=== PATIENT | male | born 1970 | race Caucasian/White ===

== ENCOUNTER → 2016-10-17 | Outpatient (CLI) | payer BC ==
[~2016-10-17] MED LIST: AGM875 PO; ALLDSR/24 PO; ALPR-411 PO; TEMA30CA4 PO
[2016-10-17 17:03] LABS: BASO % 0.6 %; BASO ABS # 0.03 K/uL (0-0.2); COMPLETE YES; EOS % 4.7 %; HEMATOCRIT 50.3 % (42-52); IG% 0.6 %; LYMPH % 28.2 %; LYMPH ABS # 1.31 K/uL (1.2-3.4); MEAN CELL VOLUME 90.3 fL (80-100); MEAN CORPUSCULAR HEMOGLOBIN 32.3 pg (25-34); MEAN CORPUSCULAR HGB CONC 35.8 g/dl (32-36); MEAN PLATELET VOLUME 10.2 fL (7.4-10.4); MONO % 11.4 %; NEUT % 54.5 %; PLATELET COUNT 194 K/uL (130-400); RED BLOOD COUNT 5.57 M/uL (4.7-6.1); WHITE BLOOD COUNT 4.64 K/uL (4.8-10.8)
[2016-10-17 17:38] LABS: ALT/SGPT 48 U/L (12-78); AST/SGOT 28 U/L (15-37); BLOOD UREA NITROGEN 23 mg/dl (7-18); BUN/CREATININE RATIO 15.1 (10-20); CALCIUM 8.8 mg/dl (8.5-10.1); CARBON DIOXIDE 29 mmol/L (21-32); CHLORIDE 101 mmol/L (98-107); GLUCOSE 84 mg/dl (70-99); MAGNESIUM 2.1 mg/dl (1.8-2.4); POTASSIUM 4.3 mmol/L (3.5-5.1); SODIUM 137 mmol/L (136-145)
[2016-10-17 17:42] LABS: ALB/GLOB RATIO 1.1 (0.9-2); ALKALINE PHOSPHATASE 47 U/L (45-117); CHOLESTEROL 207 mg/dl (0-200); CHOLESTEROL/HDL RATIO 6.9; HDL CHOLESTEROL 30 mg/dl; LDL CHOLESTEROL CALCULATED 142 mg/dl; TRIGLYCERIDES 173 mg/dl (0-150); VERY LOW DENSITY LIPOPROT CALC 35 mg/dl
== END | disposition home or self-care (01) ==
LOC: C.LABBC 15:30
PROVIDERS: ATTEND Nurse Practitioner Family
DX: I10 Essential (primary) hypertension (principal); E78.5 Hyperlipidemia, unspecified

== ENCOUNTER 2021-09-29 12:54 | Inpatient (IN) ==
[2021-09-29 13:37] LABS: Basophils # (auto) 0.02 K/uL (0-0.2); Basophils % (auto) 0.3 %; Eosinophils # (auto) 0.19 K/uL (0-0.5); Eosinophils % (auto) 2.7 %; Hematocrit (blood only) 48.7 % (42-52); Hemoglobin 17.5 g/dL (14.0-18.0); Immature Granulocytes # (auto) 0.03 K/uL (0.00-0.02); Immature Granulocytes % (auto) 0.4 %; Lymphocytes # (auto) 0.96 K/uL (1.2-3.4); Lymphocytes % (auto) 13.5 %; Mean Corpuscular Hgb Conc 35.9 g/dL (32-36); Mean Corpuscular Volume 91.9 fL (80-100); Mean Platelet Volume 10.2 fL (7.4-10.4); Monocytes # (auto) 0.65 K/uL (0.11-0.59); Monocytes % (auto) 9.2 %; Neutrophils # (auto) 5.24 K/uL (1.4-6.5); Neutrophils % (auto) 73.9 %; Platelet Count 226 K/uL (130-400); RDW Coefficient of Variation 13.7 % (11.5-14.5); RDW Standard Deviation 45.8 fL (36.4-46.3); White Blood Count 7.09 K/uL (4.8-10.8)
[2021-09-29 13:59] LABS: Partial Thromboplastin Time 26.4 Seconds (21.0-31.0); Prothrombin Time 10.4 Seconds (9.0-12.0)
[2021-09-29 14:00] LABS: Troponin I 2.62 ng/ml (0-0.04)
[2021-09-29] MEDS ORDERED: LORazepam 2 MG/1 ML VIAL IV STA (14:01)
[2021-09-29] MEDS ORDERED: LABETALOL HCL IV 5 MG/ML 20ML IV STA (14:03)
[2021-09-29 14:08] LABS: Albumin Globulin Ratio 1.2 (0.9-2); Albumin Level 3.5 gm/dl (3.4-5.0); BUN Creatinine Ratio 9.5 (10-20); Bilirubin,Total 0.6 mg/dl (0.2-1.0); Calcium 9.1 mg/dl (8.5-10.1); Creatinine Clr Calc Pharmacy 61.1 ml/min; Est GFR (African American) 39.6 ml/min; Est GFR (Non-African American) 34.2 ml/min; Globulin 2.9 gm/dl (2.5-4.0); Total Protein 6.4 gm/dl (6.0-8.3)
--- NOTE | 2021-09-29 14:19 | Emergency Department Note ---
Impression & Plan Elevated troponin ADMIT ED Provider Note HPI: The patient is a 50-year-old gentleman with history of CKD, hypertension, presents the emergency department with a chief complaint of chest pain that has been intermittent for the past 2 weeks. Patient tells me that over the past several weeks he has had issues with increasing stress, states he has had issues with anxiety as well, he has been eating a very poor diet over the past several months.Patient states that this is a combination of multiple stressors in his life in addition to his stressful work schedule. Patient states that since about 10 AM his chest pain seems to acutely worsened. Patient rates it at an 8 out of 10 on arrival. On arrival here to the ED he is hypertensive in the 190 systolic, on my initial assessment his heart rate is within normal limits, he is saturating well on room air. Patient complains of some ongoing chest discomfort. 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 His EKG shows no evidence of ST elevation however his troponin did result elevated at 2.6, case was discussed with on-call interventional Cardiology, Dr. Ashley, who is in agreement for consultation and will take the patient to the Planning Lead urgently if CT angiography of the chest is negative. Repeat EKG was performed and does not show any evidence of ST elevation. CT angiography of the chest was Performed and does not show any evidence of aortic dissection. Patient was given labetalol as well as Ativan by request here in the ED for his hypertension and his anxiety. Patient was taken urgently to the cardiac catheterization lab for further assessment. Aspirin was ordered but not given prior to the patient's transfer to the cardiac catheterization lab, patient was transferred in stable condition for further care. * CRITICAL CARE TIME: 35 minutes - Management of hypertensive emergency requiring IV medications for blood pressure control, management of elevated troponin in the setting of active chest pain requiring subspecialty consultation with interventional cardiology for transfer to the catheterization lab, Time spent at the bedside, discussion with other physicians/discussion with patient Diagnosis: 1. Chest pain with elevated troponin 2. Hypertensive emergency 3. CKD Disposition: Admission Roland Jimenez DO Emergency Medicine Past Med/Surg History Medical History Anxiety and depression Arthritis CKD (chronic kidney disease) Hyperlipidemia Hypertension Post traumatic stress disorder Quadriceps tendon rupture Surgical History S/P hernia surgery Family History Father Myocardial infarction COPD (chronic obstructive pulmonary disease) Hypertension Family history of diabetes mellitus Grandfather Lung cancer Mother COPD (chronic obstructive pulmonary disease) Hypertension Grandfather (Paternal) Myocardial infarction Family history of diabetes mellitus Other No family history of adverse response to anesthesia Denies family history of Ovarian cancer Prostate cancer Breast cancer Colorectal cancer Social History Smoking Status: Never smoker Second Hand Exposure: Yes ( A CHILD); Hx Alcohol Use: Yes Alcohol type: wine Hx Substance Use: Yes Substance Use Type Other:: MEDICAL MARIJUANA Preferred Language: Liberian Communication Ability: Effective Visual Impairment: No Limitations Hearing Ability: Normal Manager Epic Required: No Beliefs That Will Affect Care: None marital status: Current Living Situation: Spouse current occupational status: employed 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 Safe at Home: Yes Childhood Exposure to Second-Hand Smoke: Yes Dental Care, Regularly: Yes Physical Activity Frequency: 3-4 Times per Week Seatbelt Use: never Sunscreen Use: Yes Assistive Devices: Cane Allergies Allergies Allergy/AdvReac Type Severity Reaction Status Date / Time No Known Allergies Allergy Verified 06/16/21 14:04 Home Meds Home Medications Medication Instructions Recorded Confirmed multivitamin 1 tab PO BID tab 10/21/20 09/29/21 tramadol 100 mg tablet 100 mg PO DAILY PRN 10/21/20 09/29/21 ibuprofen 600 mg tablet 600 mg PO Q6H PRN 12/19/20 09/29/21 amino acids (Amino Acid) 1 cap PO DAILY 06/16/21 09/29/21 ascorbic acid (vitamin C) 1,000 mg 1 g PO BID tab 06/16/21 09/29/21 tablet (Vitamin C) buspirone 15 mg tablet 15 mg PO BID tab 06/16/21 09/29/21 cholecalciferol (vitamin D3) 50 10,000 unit PO DAILY tab 06/16/21 09/29/21 mcg (2,000 unit) tablet (Vitamin D3) lisinopril 20 mg tablet 20 mg PO BID tab 06/16/21 09/29/21 omega-3 fatty acids 1,000 mg 1,000 mg PO DAILY 06/16/21 09/29/21 capsule (Fish Oil Concentrate) zinc 100 mg tablet 200 mg PO DAILY tab 06/16/21 09/29/21 Previous Rx's Medication Instructions Recorded fluoxetine 20 mg capsule 20 mg PO DAILY #90 cap 08/11/20 aspirin 81 mg tablet,delayed 81 mg PO BID #60 tab 09/09/20 release carvedilol 25 mg tablet 25 mg PO BID #180 tab 10/21/20 hydrochlorothiazide 25 mg tablet 25 mg PO DAILY #90 tab 10/21/20 quetiapine 200 mg tablet 200 mg PO HS #90 tab 08/07/21 clonazepam 1 mg tablet 1 mg PO TID PRN #60 tab 08/08/21 Results & Data (ED) Vital Signs Vital Signs - 24 hr 09/29/21 13:02 09/29/21 13:45 09/29/21 13:47 Temperature 36.4 C L Temperature Source Temporal Artery Scan Pulse Rate 87 85 Pulse Rate [Apical] 85 Pulse Rhythm Regular Pulse Rhythm [Apical] Regular Pulse Strength [Apical] Normal Respiratory Rate 22 22 Respiratory Effort / Characteristics Non-Labored Non-Labored Spontaneous Non-Labored Spontaneous Short of Breath SOB on Exertion Respiratory Depth Normal Normal Normal Respiratory Pattern Regular Blood Pressure 204/124 H Blood Pressure [Right Arm] 197/134 H Blood Pressure Mean 150 Blood Pressure Mean [Right Arm] 155 Blood Pressure Position [Right Arm] Sitting Pulse Oximetry 96 93 Oxygen Delivery Method Room Air Room Air Room Air Sepsis Recent Fever Within 48 Hours No Sepsis New/Unexplained Change in Mental Status No Sepsis Action Taken by Nursing No Action Required 09/29/21 14:00 09/29/21 14:23 Temperature Temperature Source Pulse Rate Pulse Rate [Apical] 80 Pulse Rhythm Pulse Rhythm [Apical] Regular Pulse Strength [Apical] Normal Respiratory Rate 22 Respiratory Effort / Characteristics Non-Labored Respiratory Depth Normal Respiratory Pattern Regular Blood Pressure Blood Pressure [Right Arm] 180/116 H Blood Pressure Mean Blood Pressure Mean [Right Arm] 137 Blood Pressure Position [Right Arm] Sitting Pulse Oximetry 95 94 Oxygen Delivery Method Room Air Room Air Sepsis Recent Fever Within 48 Hours Sepsis New/Unexplained Change in Mental Status Sepsis Action Taken by Nursing Laboratory Data Result diagrams: 09/29/21 13:25 09/29/21 13:25 Lab Results 09/29/21 09/29/21 09/29/21 Range/Units 13:25 13:25 13:25 WBC 7.09 (4.8-10.8) K/uL RBC 5.30 (4.7-6.1) M/uL Hgb 17.5 (14.0-18.0) g/dL Hct 48.7 (42-52) % MCV 91.9 (80-100) fL MCH 33.0 (25-34) pg MCHC 35.9 (32-36) g/dL RDW Std Deviation 45.8 (36.4-46.3) fL RDW Coeff of Melonie 13.7 (11.5-14.5) % Plt Count 226 (130-400) K/uL MPV 10.2 (7.4-10.4) fL Immature Gran % (Auto) 0.4 % Neut % (Auto) 73.9 % Lymph % (Auto) 13.5 % [place] % (Auto) 9.2 % Eos % (Auto) 2.7 % Baso % (Auto) 0.3 % Neut # (Auto) 5.24 (1.4-6.5) K/uL Lymph # (Auto) 0.96 L (1.2-3.4) K/uL [place] # (Auto) 0.65 H (0.11-0.59) K/uL Eos # (Auto) 0.19 (0-0.5) K/uL Baso # (Auto) 0.02 (0-0.2) K/uL Immature Gran # (Auto) 0.03 H (0.00-0.02) K/uL PT 10.4 (9.0-12.0) Seconds INR 1.0 (0.9-1.1) APTT 26.4 (21.0-31.0) Seconds PTT Ratio 1.0 Sodium 132 L (136-145) mmol/L Potassium 4.0 (3.5-5.1) mmol/L Chloride 96 L (98-107) mmol/L Carbon Dioxide 29 (21-32) mmol/L Anion Gap 7 (3-11) BUN 21 (6-23) mg/dl Creatinine 2.20 H (0.6-1.4) mg/dl Est Cr Clr Drug Dosing 61.1 ml/min Est GFR ( Amer) 39.6 ml/min Est GFR (Non-Af Amer) 34.2 ml/min BUN/Creatinine Ratio 9.5 L (10-20) Glucose 100 H (70-99(Fasting)) mg/dl Calcium 9.1 (8.5-10.1) mg/dl Total Bilirubin 0.6 (0.2-1.0) mg/dl AST 95 H (13-39) U/L ALT 70 H (7-52) U/L Alkaline Phosphatase 38 (34-104) U/L Troponin I 2.62 H* (0-0.04) ng/ml Total Protein 6.4 (6.0-8.3) gm/dl Albumin 3.5 (3.4-5.0) gm/dl Globulin 2.9 (2.5-4.0) gm/dl Albumin/Globulin Ratio 1.2 (0.9-2) Administered Medications Discontinued Medications Ioversol (Optiray 320 125ml) 116 ml IV ONCE ONE Stop: 09/29/21 15:00 Last Admin: 09/29/21 15:05 Dose: 116 ml Documented by: [id number] Labetalol HCl (Labetalol Hcl Iv 5 Mg/Ml 20ml) 10 mg IV NOW STA Stop: 09/29/21 14:04 Last Admin: 09/29/21 14:13 Dose: 10 mg Documented by: [id number] Cosigned by: [id number] Lorazepam (Lorazepam 2 Mg/1 Ml Vial) 1 mg IV NOW STA Stop: 09/29/21 14:02 Last Admin: 09/29/21 14:15 Dose: 1 mg Documented by: [id number] Imaging Data Radiologist's Impression: Chest CTA 09/29/21 14:02 CHEST CTA for AORTIC DISSECTION CT DOSE: 1813.93 mGycm HISTORY: Atypical chest pain. Assess for dissection. TECHNIQUE: Multiaxial CT images of the chest were performed both before and after the intravenous administration of contrast to evaluate the aorta. Maximal intensity projection images were also obtained. A dose lowering technique was utilized adhering to the principles of ALARA. COMPARISON STUDY: None. FINDINGS: Noncontrast imaging through the chest shows no evidence for an intramural hematoma within the thoracic aorta. Normal caliber thoracic aorta with no evidence for dissection. The heart is mildly enlarged. No pleural or pericardial effusions. Normal thyroid gland. No mediastinal lymphadenopathy or hematoma. No hilar lymphadenopathy. Limited views the upper abdomen demonstrate a normal liver and spleen. Normal caliber esophagus. No acute fractures within the visualized osseous structures. Severe osteoarthritis within the right glenohumeral joint. No pneumothorax. The central airways are patent. Mild dependent changes seen within the lungs posteriorly. No focal lung consolidations to suggest pneumonia. No evidence for pulmonary edema. IMPRESSION: 1. No evidence for an aortic dissection. 2. Mild cardiomegaly. 3. Severe osteoarthritis within the right glenohumeral joint ACT 112: Negative or not required by law. Electronically signed by: Fabian Ovalle M.D. 09/29/2021 3:21 PM Discharge Plan Visit Data Chief Complaint: Cardiac Assessment Stated Complaint: SOB, CHEST PAIN, LEFT ARM SIDE NUMB ED Provider: Roland Jimenez Discharge Problem: Elevated troponin Forms Stand Alone Forms: My [employer] Prescriptions Prescriptions: No Action quetiapine 200 mg tablet 200 mg PO HS Qty: 90 RF: 0 clonazepam 1 mg tablet 1 mg PO TID PRN (Reason: anxiety) Qty: 60 RF: 0 fluoxetine 20 mg capsule 20 mg PO DAILY Qty: 90 RF: 1 buspirone 15 mg tablet 15 mg PO BID RF: 0 lisinopril 20 mg tablet 20 mg PO BID RF: 0 omega-3 fatty acids [Fish Oil Concentrate] 1,000 mg capsule 1,000 mg PO DAILY RF: 0 tramadol 100 mg tablet 100 mg PO DAILY PRN (Reason: Pain) RF: 0 carvedilol 25 mg tablet 25 mg PO BID Qty: 180 RF: 3 hydrochlorothiazide 25 mg tablet 25 mg PO DAILY Qty: 90 RF: 3 ibuprofen 600 mg tablet 600 mg PO Q6H PRN (Reason: Pain) RF: 0 aspirin 81 mg tablet,delayed release (DR/EC) 81 mg PO BID Qty: 60 RF: 0 multivitamin Tablet 1 tab PO BID RF: 0 Amino Acid Capsule 1 cap PO DAILY RF: 0 cholecalciferol (vitamin D3) [Vitamin D3] 50 mcg (2,000 unit) tablet 10,000 unit PO DAILY RF: 0 ascorbic acid (vitamin C) [Vitamin C] 1,000 mg tablet 1 g PO BID RF: 0 zinc 100 mg tablet 200 mg PO DAILY RF: 0 Referrals Referrals: Chris Mckeon III, CRNP [Primary Care Provider] -
--- NOTE | 2021-09-29 14:39 | Electrocardiogram Report ---
Test Reason : Blood Pressure : / mmHG Vent. Rate : 085 BPM Atrial Rate : 085 BPM P-R Int : 186 ms QRS Dur : 124 ms QT Int : 386 ms P-R-T Axes : 036 045 035 degrees QTc Int : 459 ms Normal sinus rhythm Possible Left atrial enlargement Non-specific intra-ventricular conduction delay Nonspecific ST abnormality Abnormal ECG When compared with ECG of 09-SEP-2020 11:38, ST now depressed in Lateral leads Confirmed by Niraj Slaughter ([id number]) on 09/29/2021 2:38:59 PM Referred By: Confirmed By:Esequiel Slaughter
[2021-09-29] MEDS ORDERED: OPTIRAY 320 125ml IV ONE (14:59)
--- NOTE | 2021-09-29 15:22 | CT Scan Report ---
CHEST CTA for AORTIC DISSECTION CT DOSE: 1813.93 mGycm HISTORY: Atypical chest pain. Assess for dissection. TECHNIQUE: Multiaxial CT images of the chest were performed both before and after the intravenous adm inistration of contrast to evaluate the aorta. Maximal intensity projection images were also obtained . A dose lowering technique was utilized adhering to the principles of ALARA. COMPARISON STUDY: None. FINDINGS: Noncontrast imaging through the chest shows no evidence for an intramural hematoma within t he thoracic aorta. Normal caliber thoracic aorta with no evidence for dissection. The heart is mildly enlarged. No pleural or pericardial effusions. Normal thyroid gland. No mediastinal lymphadenopathy or hematoma. No hilar lymphadenopathy. Limited views the upper abdomen demonstrate a normal liver and spleen. Normal caliber esophagus. No acute fractures within the visualized osseous structures. Sever e osteoarthritis within the right glenohumeral joint. No pneumothorax. The central airways are patent . Mild dependent changes seen within the lungs posteriorly. No focal lung consolidations to suggest p neumonia. No evidence for pulmonary edema. IMPRESSION: 1. No evidence for an aortic dissection. 2. Mild cardiomegaly. 3. Severe osteoarthritis within the right glenohumeral joint ACT 112: Negative or not required by law. Electronically signed by: Fabian Ovalle M.D. 09/29/2021 3:21 PM
[2021-09-29] MEDS ORDERED: ASPIRIN CHEW 324 MG PO STA (15:25)
[2021-09-29] MEDS ORDERED: MIDAZOLAM HCL 1 MG/ML 2ML VIAL ONE ×4 (15:32→16:40)
[2021-09-29] MEDS ORDERED: fentaNYL citrate 100 MCG/2 ML VIAL ONE ×3 (15:32→16:40)
[2021-09-29] MEDS ORDERED: HEPARIN (PORCINE) 1000 UNIT/ML 10 ML (CATH LAB USE ONLY) ONE ×2 (15:32→16:27)
[2021-09-29] MEDS ORDERED: niCARdipine HCL INJ 2.5 MG/ML 10 ML AMP ONE (15:32)
[2021-09-29] MEDS ORDERED: NITROGLYCERIN/D5W 100MCG/ML 20ML SYR ONE (15:33)
[2021-09-29] MEDS ORDERED: TICAGRELOR 90 MG TAB PO ONE (17:00)
--- NOTE | 2021-09-29 17:22 | Post Anesthesia Assessment ---
Date of Service September 29, 2021 Post Sedation Assessment Vital Signs Temp Pulse Pulse Resp BP BP Pulse Ox 09/29/21 14:45 174/110 H 09/29/21 14:23 94 09/29/21 14:00 80 22 180/116 H 95 09/29/21 13:45 85 85 22 197/134 H 93 09/29/21 13:02 97.5 F L 87 22 204/124 H 96 Recovery Score Activity: Moves 4 extremities Respiration: Deep Breath/Cough Circulation: +/-20% PreAnes Value Consciousness: Fully Awake Oxygen Saturation: O2 needed for >90% Discharge Sedation Level of Care: Fast Track Phase II Post Sedation Plan On clinical assessment, the patient appears to have tolerated the sedation without complications. Patient is recovering as anticipated. Patient will continue to be monitored by nursing and may be discharged when sedation discharge criteria are met per below protocol. Upon Completions of procedure up to 15 minutes continue every 5 minute vital signs and the P.A.R. score; then discharge to a Phase I or Fast Track to Phase II per the following guidelines: * Discharge Patient to appropriate Phase II area if PAR is 8 or greater or return to pre- procedure baseline. The post - procedure orders will be as directed. * If PAR score is less than 8 or not return to pre-procedure baseline then patient will follow Phase I monitoring till PAR is reached for Phase II. The Phase I may be done in procedure room or may call to secure a Phase I area. * If naloxone or flumazenil are used for reversal, hold in Phase I for continued monitoring from when last reversal dose was given for a minimum of 60 minutes or longer pending the nurse and/or physician discretion of patient condition before discharge to Phase II. Please call the Sedation Physician to re-evaluate and complete post-note for discharge to Phase II area. Do NOT discharge from procedure sedation or Phase 1 until post- sedation evaluation note is complete by procedure /sedation MD Sedation Discharge Instructions to be given to the patient at discharge to home.
--- NOTE | 2021-09-29 17:22 | Pre Anesthesia Assessment ---
Date of Service September 29, 2021 Pre Sedation Assessment Vital Signs Temp Pulse Pulse Resp BP BP Pulse Ox 09/29/21 14:45 174/110 H 09/29/21 14:23 94 09/29/21 14:00 80 22 180/116 H 95 09/29/21 13:45 85 85 22 197/134 H 93 09/29/21 13:02 97.5 F L 87 22 204/124 H 96 Cardiovascular RRR, no murmur, no edema Respiratory normal respiratory effort, lungs clear to auscultation Pre-Sedation Airway Assessment Smoking Status: Never smoker Hx Sleep Apnea: No Hx Difficult Intubation: No Short, Thick Neck: Yes Thyromental Distance: > or= 3.5 Finger Breadths Oral Cavity: + WNL Mallampati Class: III ASA: ASA3 NPO Status Date of Last Intake of Fluids: 09/28/21 Date of Last Intake of Solid Food: 09/28/21 Procedure Planning Contraindications for Sedation: none Current Medications Reviewed: Yes Notes The planned sedation has been discussed with the patient. Informed Consent was obtained. I have identified the patient, determined the appropriateness of sedation and have assessed the patient immediately prior to the procedure. All medicine(s) and interventions are by my order.
--- NOTE | 2021-09-29 17:28 | Electrocardiogram Report ---
Test Reason : Blood Pressure : / mmHG Vent. Rate : 081 BPM Atrial Rate : 081 BPM P-R Int : 186 ms QRS Dur : 122 ms QT Int : 384 ms P-R-T Axes : 042 036 003 degrees QTc Int : 446 ms Normal sinus rhythm Possible Left atrial enlargement possible Inferior infarct , age undetermined Abnormal ECG When compared with ECG of 29-SEP-2021 13:22, No significant change was found Confirmed by Niraj Slaughter ([id number]) on 09/29/2021 5:27:54 PM Referred By: REFERRED SELF Confirmed By:Esequiel Slaughter
[2021-09-29] MEDS ORDERED: NITROGLYCERIN SL 0.4 MG/TAB TAB SL PRN (17:43)
[2021-09-29] MEDS ORDERED: ONDANSETRON INJ 2 MG/ML 2 ML VIAL IV PRN (17:43)
[2021-09-29] MEDS ORDERED: SODIUM CHLORIDE 0.9% 1000ML 1,000 ML IV SCH (18:00)
--- NOTE | 2021-09-29 18:06 | Post Operative Brief Note ---
Cardiology Brief Post Op Date of Surgery September 29, 2021 Pre & Post Diagnosis NSTEMI Procedure Cardiac cath, PCI Environmental Sampler Niraj Ashley MD Clinical Academic Allergist Deibler Estimated Blood Loss 15 Findings See Below 100% acute mid circumflex occlusion 40-50% mid RCA 95+% distal RCA Successful PCI of mid circumflex with single WILFRED (3.0 x 22 Lueders; post-dilated with 3.5 NC). Attempted PCI of distal RCA. Appeared to be chronic lesion and procedure discontinued. Plan: trend trop, echo blood pressure control DAPT IV hydration for CKD/JESSE possible staged PCI of RCA on saturday Drains Other Anesthesia Type RN Sedation Complications none Disposition Accompanied Patient To Recovery: No Disposition: PCU Overlapping Procedure I was present for: the critical portions of procedure. I was immediately available: during the entire case. Back up surgeon: was not required during procedure.
--- NOTE | 2021-09-29 18:17 | History & Physical Report ---
Date of Service September 29, 2021 Assessment & Plan (1) NSTEMI (non-ST elevated myocardial infarction): Plan: Presented with intermittent chest pains progressively worsening over the last 2 weeks, with troponin of 2.[address] depressions in lateral leads With risk factors of HTN, CKD Now s/p cardiac catheterization with 1 WILFRED to the circumflex it was acutely occluded. RCA has a 95% distal more chronic occlusion that was unable to be stented -Admit to PCU -Continue DAPT with aspirin and Brilinta -Start atorvastatin 80 mg daily -Continue home carvedilol 25 mg p.o. twice daily -Holding home losartan and HCTZ in case of acute kidney injury from dye load -Start hydralazine 25 mg p.o. 3 times daily for BP control and increase as needed -Start isosorbide 30 mg p.o. once daily, first dose now and titrate up as needed -Trend troponin until peaks, serial ECG -Check echocardiogram -Check lipid panel in the morning -Appreciate cardiology management -Check hemoglobin A1c in the morning -Follow radial artery catheterization precautions, recommended he abstain from a ll of his usual heavy weightlifting activity at this time until cleared by cardiology -Discontinue NSAIDs permanently (2) CAD (coronary artery disease), [place] coronary artery: Plan: As above, severe Will need cardiac rehab (3) Transaminitis: Plan: AST and ALT elevated upon arrival No imaging of the liver He is at risk for fatty liver No abdominal pains Follow LFTs in the morning and if remain elevated, consider liver ultrasound (4) CKD (chronic kidney disease): Plan: CKD stage III, follows with nephrology as an outpatient, baseline creatinine 2.0 with history of nephrotic range proteinuria Creatinine slightly above baseline on arrival here 2.2 Received contrast dye load with CT a chest as well as cardiac catheterization Continue IV fluid hydration post catheterization with 750 mL of normal saline Follow BMP in the morning -Holding home losartan and HCTZ (5) Benign essential hypertension: Plan: With accelerated hypertension here with blood pressures in the 190s over 130s Holding home losartan HCTZ as above -Continue home carvedilol -Start hydralazine 25 mg p.o. 3 times daily and titrate up as needed -Start isosorbide 30 mg p.o. once daily and titrate up as needed -IV hydralazine 10 mg as needed for blood pressures greater than 180/100 -Anxiety also playing a role here-restart home anxiety medications to include BuSpar, clonazepam, Prozac, Seroquel (6) Proteinuria: Plan: As above (7) GORDY (generalized anxiety disorder): Plan: Continue home medications (8) Hyperlipidemia: Plan: Check lipid panel in the morning Previous LDL elevated 154 Start atorvastatin 80 mg daily (9) Major depressive disorder: Plan: Continue home medications Plan: DVT prophylaxis-SCDs Disposition-admit to PCU Full code History of Present Illness Chief Complaint: Chest pain Primary Care Provider: Chris Mckeon, III, [facility] This pt is a 50 yo male with a h/o HTN, CKD stage 3, nephrotic range proteinuria, obesity, depression w/ anxiety, who presents to the ER with chest pain that has been intermittent for the last 2 weeks, but got much worse this morning. He has trouble describing it but it seemed to be substernal and somewhat sharp and at times he thought it was indigestion. He did take Tums a few times over the last 2 weeks which would make it go away. He also had some occasional numbness in the left arm. The pain today also made him short of breath. He reports that he regularly exercises and in fact lifted 500 pounds yesterday and moved many 100s of pounds of machinery around at work. He does admit that he has gained extra weight over the last year or so and wonders if that contributed to his chest pains. In the ER, he was found to have a troponin of 2.6, and some ST depressions in the lateral leads on ECG. His AST and ALT were also elevated, and he had a mild hyponatremia with a sodium of 132. His creatinine was slightly above his baseline at 2.2. He was significantly hypertensive with blood pressures close to 200 systolic and 130s diastolic. Because of the elevated troponin and chest pains, he was sent for CT angiogram of the chest which was negative for dissection or PE. He was then taken to the cardiac [facility] where he was found to have an acutely occluded circumflex which was stented, and a 95% distal RCA lesion which had an attempted PCI but the lesion appeared to be chronic and the procedure was discontinued due to effort to avoid further dye load. He does have CKD and had dye load with his CTA as well as the cardiac catheterization. Planned for staged PCI of the RCA on Saturday. He was loaded with Brilinta and blood pressures remained elevated upon arrival to the PCU. When I saw him, he continued to be quite anxious and requested his clonazepam, but said he was not having any further chest pains. Denies shortness of breath. Denied nausea. He was given IV hydralazine as well as p.o. hydralazine. I discussed his case with the service tester at the time of admission. Allergies Allergy/AdvReac Type Severity Reaction Status Date / Time amlodipine AdvReac Intermediate Leg Verified 09/29/21 18:47 swelling Home Medications Medication Instructions Recorded Confirmed Type fluoxetine 20 mg capsule 20 mg PO DAILY #90 cap 08/11/20 09/29/21 Rx aspirin 81 mg tablet,delayed 81 mg PO BID #60 tab 09/09/20 09/29/21 Rx release carvedilol 25 mg tablet 25 mg PO BID #180 tab 10/21/20 09/29/21 Rx hydrochlorothiazide 25 mg tablet 25 mg PO DAILY #90 tab 10/21/20 09/29/21 Rx multivitamin 1 tab PO BID tab 10/21/20 09/29/21 History tramadol 100 mg tablet 100 mg PO DAILY PRN 10/21/20 09/29/21 History ibuprofen 600 mg tablet 600 mg PO Q6H PRN 12/19/20 09/29/21 History amino acids (Amino Acid) 1 cap PO DAILY 06/16/21 09/29/21 History ascorbic acid (vitamin C) 1,000 mg 1 g PO BID tab 06/16/21 09/29/21 History tablet (Vitamin C) buspirone 15 mg tablet 15 mg PO BID tab 06/16/21 09/29/21 History cholecalciferol (vitamin D3) 50 10,000 unit PO DAILY tab 06/16/21 09/29/21 History mcg (2,000 unit) tablet (Vitamin D3) lisinopril 20 mg tablet 20 mg PO BID tab 06/16/21 09/29/21 History omega-3 fatty acids 1,000 mg 1,000 mg PO DAILY 06/16/21 09/29/21 History capsule (Fish Oil Concentrate) zinc 100 mg tablet 200 mg PO DAILY tab 06/16/21 09/29/21 History quetiapine 200 mg tablet 200 mg PO HS #90 tab 08/07/21 09/29/21 Rx clonazepam 1 mg tablet 1 mg PO TID PRN #60 tab 08/08/21 09/29/21 Rx Past Med/Surg History Medical History (Updated 09/29/21 @ 21:57 by Rdaha Lin MD) Anxiety and depression Arthritis CAD (coronary artery disease), [place] coronary artery CKD (chronic kidney disease) Hyperlipidemia Hypertension NSTEMI (non-ST elevated myocardial infarction) Post traumatic stress disorder Quadriceps tendon rupture RT Surgical History (Updated 09/29/21 @ 21:51 by Radha Lin MD) H/O knee surgery Bilateral quadriceps tendon repair S/P hernia surgery UMBILICAL Family History Father Myocardial infarction COPD (chronic obstructive pulmonary disease) Hypertension Family history of diabetes mellitus Grandfather Lung cancer Mother COPD (chronic obstructive pulmonary disease) Hypertension Grandfather (Paternal) Myocardial infarction Family history of diabetes mellitus Other No family history of adverse response to anesthesia Denies family history of Ovarian cancer Prostate cancer Breast cancer Colorectal cancer Social History Smoking Status: Never smoker Second Hand Exposure: Yes ( A CHILD); Hx Alcohol Use: No Hx Substance Use: No Preferred Language: Vietnamese Communication Ability: Effective Visual Impairment: No Limitations Hearing Ability: Normal Silk Screen Operator Required: No Beliefs That Will Affect Care: None marital status: Current Living Situation: Spouse current occupational status: employed 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 Feels Safe at Home: Yes and No Is there a partner from a previous relationship who is making you feel unsafe now?: No Any Concerns about Your Family Situation: No Would You Like to Speak to Someone About Your Situation: No Childhood Exposure to Second-Hand Smoke: Yes Dental Care, Regularly: Yes Physical Activity Frequency: 3-4 Times per Week Seatbelt Use: never Sunscreen Use: Yes Assistive Devices: None Review of Systems Review of Systems: All systems reviewed & are unremarkable except as noted in HPI & below Physical Exam Constitutional: WD/WN, vitals as above + obese Eyes: + anicteric sclerae ENMT: external ear and nose normal, oropharynx normal Neck: trachea midline, no thyromegaly Respiratory: normal respiratory effort, lungs clear to auscultation Cardiovascular: RRR, no murmur, no edema Chest (Breasts): Chest: normal inspection of chest Gastrointestinal (Abdomen): normal bowel sounds, soft, nontender, no hepa tosplenomegaly Musculoskeletal: Extremities: extremities normal to inspection; no cyanosis and no clubbing Skin: no rashes, warm and dry Neurologic: moves all extremities and awake; no focal motor deficits Psychiatric: A+Ox3, euthymic affect Lymphatic: no lymphedema Results & Data Results & Data ([facility]) Vital Signs (Past 12 Hours) Vital Signs Temp Pulse Pulse Resp BP BP Pulse Ox 09/29/21 17:23 36.7 C 83 20 174/126 H 93 09/29/21 14:45 174/110 H 09/29/21 14:23 94 09/29/21 14:00 80 22 180/116 H 95 09/29/21 13:45 85 85 22 197/134 H 93 09/29/21 13:02 36.4 C L 87 22 204/124 H 96 Laboratory Results 09/29/21 09/29/21 09/29/21 Range/Units 16:53 16:24 15:30 WBC (4.8-10.8) K/uL RBC (4.7-6.1) M/uL Hgb (14.0-18.0) g/dL Hct (42-52) % MCV (80-100) fL MCH (25-34) pg MCHC (32-36) g/dL RDW Std Deviation (36.4-46.3) fL RDW Coeff of Melonie (11.5-14.5) % Plt Count (130-400) K/uL MPV (7.4-10.4) fL Immature Gran % (Auto) % Neut % (Auto) % Lymph % (Auto) % [place] % (Auto) % Eos % (Auto) % Baso % (Auto) % Neut # (Auto) (1.4-6.5) K/uL Lymph # (Auto) (1.2-3.4) K/uL [place] # (Auto) (0.11-0.59) K/uL Eos # (Auto) (0-0.5) K/uL Baso # (Auto) (0-0.2) K/uL Immature Gran # (Auto) (0.00-0.02) K/uL PT (9.0-12.0) Seconds INR (0.9-1.1) APTT (21.0-31.0) Seconds PTT Ratio Activ Coag Time Kaolin 225 H 249 H (94-140) SECONDS Sodium (136-145) mmol/L Potassium (3.5-5.1) mmol/L Chloride (98-107) mmol/L Carbon Dioxide (21-32) mmol/L Anion Gap (3-11) BUN (6-23) mg/dl Creatinine (0.6-1.4) mg/dl Est Cr Clr Drug Dosing ml/min Est GFR ( Amer) ml/min Est GFR (Non-Af Amer) ml/min BUN/Creatinine Ratio (10-20) Glucose (70-99(Fasting)) mg/dl Calcium (8.5-10.1) mg/dl Total Bilirubin (0.2-1.0) mg/dl AST (13-39) U/L ALT (7-52) U/L Alkaline Phosphatase (34-104) U/L Troponin I (0-0.04) ng/ml Total Protein (6.0-8.3) gm/dl Albumin (3.4-5.0) gm/dl Globulin (2.5-4.0) gm/dl Albumin/Globulin Ratio (0.9-2) SARS-CoV-2, RNA, NAAT NEGATIVE (NEGATIVE) 09/29/21 09/29/21 09/29/21 Range/Units 13:25 13:25 13:25 WBC 7.09 (4.8-10.8) K/uL RBC 5.30 (4.7-6.1) M/uL Hgb 17.5 (14.0-18.0) g/dL Hct 48.7 (42-52) % MCV 91.9 (80-100) fL MCH 33.0 (25-34) pg MCHC 35.9 (32-36) g/dL RDW Std Deviation 45.8 (36.4-46.3) fL RDW Coeff of Melonie 13.7 (11.5-14.5) % Plt Count 226 (130-400) K/uL MPV 10.2 (7.4-10.4) fL Immature Gran % (Auto) 0.4 % Neut % (Auto) 73.9 % Lymph % (Auto) 13.5 % [place] % (Auto) 9.2 % Eos % (Auto) 2.7 % Baso % (Auto) 0.3 % Neut # (Auto) 5.24 (1.4-6.5) K/uL Lymph # (Auto) 0.96 L (1.2-3.4) K/uL [place] # (Auto) 0.65 H (0.11-0.59) K/uL Eos # (Auto) 0.19 (0-0.5) K/uL Baso # (Auto) 0.02 (0-0.2) K/uL Immature Gran # (Auto) 0.03 H (0.00-0.02) K/uL PT 10.4 (9.0-12.0) Seconds INR 1.0 (0.9-1.1) APTT 26.4 (21.0-31.0) Seconds PTT Ratio 1.0 Activ Coag Time Kaolin (94-140) SECONDS Sodium 132 L (136-145) mmol/L Potassium 4.0 (3.5-5.1) mmol/L Chloride 96 L (98-107) mmol/L Carbon Dioxide 29 (21-32) mmol/L Anion Gap 7 (3-11) BUN 21 (6-23) mg/dl Creatinine 2.20 H (0.6-1.4) mg/dl Est Cr Clr Drug Dosing 61.1 ml/min Est GFR ( Amer) 39.6 ml/min Est GFR (Non-Af Amer) 34.2 ml/min BUN/Creatinine Ratio 9.5 L (10-20) Glucose 100 H (70-99(Fasting)) mg/dl Calcium 9.1 (8.5-10.1) mg/dl Total Bilirubin 0.6 (0.2-1.0) mg/dl AST 95 H (13-39) U/L ALT 70 H (7-52) U/L Alkaline Phosphatase 38 (34-104) U/L Troponin I 2.62 H* (0-0.04) ng/ml Total Protein 6.4 (6.0-8.3) gm/dl Albumin 3.5 (3.4-5.0) gm/dl Globulin 2.9 (2.5-4.0) gm/dl Albumin/Globulin Ratio 1.2 (0.9-2) SARS-CoV-2, RNA, NAAT (NEGATIVE) Diagnostic Findings Chest CTA 09/29/21 14:02 CHEST CTA for AORTIC DISSECTION CT DOSE: 1813.93 mGycm HISTORY: Atypical chest pain. Assess for dissection. TECHNIQUE: Multiaxial CT images of the chest were performed both before and after the intravenous administration of contrast to evaluate the aorta. Maximal intensity projection images were also obtained. A dose lowering technique was utilized adhering to the principles of ALARA. COMPARISON STUDY: None. FINDINGS: Noncontrast imaging through the chest shows no evidence for an intramural hematoma within the thoracic aorta. Normal caliber thoracic aorta with no evidence for dissection. The heart is mildly enlarged. No pleural or pericardial effusions. Normal thyroid gland. No mediastinal lymphadenopathy or hematoma. No hilar lymphadenopathy. Limited views the upper abdomen demonstrate a normal liver and spleen. Normal caliber esophagus. No acute fractures within the visualized osseous structures. Severe osteoarthritis within the right glenohumeral joint. No pneumothorax. The central airways are patent. Mild dependent changes seen within the lungs posteriorly. No focal lung conso lidations to suggest pneumonia. No evidence for pulmonary edema. IMPRESSION: 1. No evidence for an aortic dissection. 2. Mild cardiomegaly. 3. Severe osteoarthritis within the right glenohumeral joint ACT 112: Negative or not required by law. Electronically signed by: Fabian Ovalle M.D. 09/29/2021 3:21 PM Code Status & VTE Plan Code Status Full code VTE Prophylaxis Plan VTE Prophylaxis will be ordered: Yes PG Care Time/CCT Total # of Minutes Spent Total Time Spent with Patient: Total time spent is greater than 50% in coordination of care (as documented) at patient's floor/unit and/or counseling patient: Coding Level of Care Code 53537 Initial Inpt Care Lvl 3 Diagnoses Proteinuria R80.9 GORDY (generalized anxiety disorder) F41.1 Hyperlipidemia E78.2 Hyperlipidemia type: mixed hyperlipidemia Benign essential hypertension I10 Major depressive disorder F33.0 Active/Remission status: currently active Major depression episode severity: mild Major depression recurrence: recurrent CKD (chronic kidney disease) N18.9 NSTEMI (non-ST elevated myocardial infarction) I21.4 CAD (coronary artery disease), [place] coronary artery I25.10 Transaminitis R74.01 (1) Major depressive disorder Active/Remission status: currently active Major depression episode severity: mild Major depression recurrence: recurrent Qualified Code(s): F33.0 - Major depressive disorder, recurrent, mild (2) Hyperlipidemia Hyperlipidemia type: mixed hyperlipidemia Qualified Code(s): E78.2 - Mixed hyperlipidemia
[2021-09-29] MEDS ORDERED: traMADol HCL 50 MG TABLET PO PRN (18:22)
[2021-09-29] MEDS: hydrALAZINE HCL 25 MG TAB PO SCH (18:47)
[2021-09-29] MEDS: clonazePAM 1 MG TAB PO PRN (18:47)
[2021-09-29] MEDS: ISOSORBIDE MONO EXTENDED REL 30 MG TABCR PO SCH (19:52)
[2021-09-29] MEDS: busPIRone 15 MG TAB PO SCH (19:53)
[2021-09-29] MEDS: QUEtiapine FUMARATE 200 MG TAB PO SCH (19:53)
[2021-09-29] MEDS: carvediloL 25 MG TAB PO SCH (19:53)
[2021-09-29] MEDS: hydrALAZINE HCL 20 MG/ML VIAL IV PRN ×2 (20:54→23:32)
[2021-09-29] MEDS ORDERED: LORazepam 1 MG TAB PO STA (21:37)
--- NOTE | 2021-09-29 22:19 | Cardiology Consultation ---
Date of Consultation September 29, 2021 Assessment & Plan (1) NSTEMI (non-ST elevated myocardial infarction): Presentation consistent with high risk NSTEMI. With ongoing chest pain recommend proceeding with urgent cardiac catheterization and possible primary PCI. Procedure complicated by patient's chronic kidney disease and contrast exposure from CTA. Discussed risks, benefits, alternatives of procedure with patient and they are willing to proceed. Further recommendations pending findings of coronary angiography. History of Present Illness Attending Physician: Radha Lin MD History of Present Illness 50-year-old man here with acute chest pain and elevated troponin concerning for acute coronary syndrome. Patient seen urgently in the ED in the setting of ongoing chest pain. No prior cardiac history. Past medical history includes stage III chronic kidney disease with baseline serum creatinine around 2.0, hypertension, dyslipidemia, generalized anxiety and obesity. 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 Reports that he woke up around 1030 this morning and soon after developed crushing, persistent chest pain right is worse than 8 out of 10. States has been having intermittent episodes of chest pain for the last 2 weeks, occurring at re st which he was attributing to stress. In the ED patient hypertensive to the 190s. ECG showed sinus rhythm with nonspecific IVCD and subtle lateral ST depressions and possible inferior infarct. Chest CTA negative for dissection. Initial troponin positive at 2.6. Social history: Non-smoker. Does not drink alcohol. . 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 Allergies Allergy/AdvReac Type Severity Reaction Status Date / Time amlodipine AdvReac Intermediate Leg Verified 09/29/21 18:47 swelling Home Medications Medication Instructions Recorded Confirmed Type fluoxetine 20 mg capsule 20 mg PO DAILY #90 cap 08/11/20 09/29/21 Rx aspirin 81 mg tablet,delayed 81 mg PO BID #60 tab 09/09/20 09/29/21 Rx release carvedilol 25 mg tablet 25 mg PO BID #180 tab 10/21/20 09/29/21 Rx hydrochlorothiazide 25 mg tablet 25 mg PO DAILY #90 tab 10/21/20 09/29/21 Rx multivitamin 1 tab PO BID tab 10/21/20 09/29/21 History tramadol 100 mg tablet 100 mg PO DAILY PRN 10/21/20 09/29/21 History ibuprofen 600 mg tablet 600 mg PO Q6H PRN 12/19/20 09/29/21 History amino acids (Amino Acid) 1 cap PO DAILY 06/16/21 09/29/21 History ascorbic acid (vitamin C) 1,000 mg 1 g PO BID tab 06/16/21 09/29/21 History tablet (Vitamin C) buspirone 15 mg tablet 15 mg PO BID tab 06/16/21 09/29/21 History cholecalciferol (vitamin D3) 50 10,000 unit PO DAILY tab 06/16/21 09/29/21 History mcg (2,000 unit) tablet (Vitamin D3) lisinopril 20 mg tablet 20 mg PO BID tab 06/16/21 09/29/21 History omega-3 fatty acids 1,000 mg 1,000 mg PO DAILY 06/16/21 09/29/21 History capsule (Fish Oil Concentrate) zinc 100 mg tablet 200 mg PO DAILY tab 06/16/21 09/29/21 History quetiapine 200 mg tablet 200 mg PO HS #90 tab 08/07/21 09/29/21 Rx clonazepam 1 mg tablet 1 mg PO TID PRN #60 tab 08/08/21 09/29/21 Rx Patient History Medical History (Updated 09/29/21 @ 21:57 by Radha Lni MD) Anxiety and depression Arthritis CAD (coronary artery disease), [place] coronary artery CKD (chronic kidney disease) Hyperlipidemia Hypertension NSTEMI (non-ST elevated myocardial infarction) Post traumatic stress disorder Quadriceps tendon rupture RT Surgical History (Updated 09/29/21 @ 21:51 by Radha Lin MD) H/O knee surgery Bilateral quadriceps tendon repair S/P hernia surgery UMBILICAL Family History Father Myocardial infarction COPD (chronic obstructive pulmonary disease) Hypertension Family history of diabetes mellitus Grandfather Lung cancer Mother COPD (chronic obstructive pulmonary disease) Hypertension Grandfather (Paternal) Myocardial infarction Family history of diabetes mellitus Other No family history of adverse response to anesthesia Denies family history of Ovarian cancer Prostate cancer Breast cancer Colorectal cancer Social History Smoking Status: Never smoker Second Hand Exposure: Yes ( A CHILD); Hx Alcohol Use: No Hx Substance Use: No Preferred Language: Hebrew Communication Ability: Effective Visual Impairment: No Limitations Hearing Ability: Normal Associate Relations Specialist Required: No Beliefs That Will Affect Care: None marital status: Current Living Situation: Spouse current occupational status: employed 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 Feels Safe at Home: Yes and No Is there a partner from a previous relationship who is making you feel unsafe now?: No Any Concerns about Your Family Situation: No Would You Like to Speak to Someone About Your Situation: No Childhood Exposure to Second-Hand Smoke: Yes Dental Care, Regularly: Yes Physical Activity Frequency: 3-4 Times per Week Seatbelt Use: never Sunscreen Use: Yes Assistive Devices: None Review of Systems Review of Systems: All systems reviewed & are unremarkable except as noted in HPI & below Physical Exam Physical Exam: General: Comfortable HEENT: Sclerae anicteric Lungs: Clear to auscultation bilaterally Cardiac: Regular rate and rhythm, no murmurs. Vascular: 2+ radial Abdomen: Soft, nontender Extremities: Well perfused, no peripheral edema Neuro: Nonfocal Psych: Alert orient x3, normal affect and mood Results & Data ([facility]) Vital Signs (Past 12 Hours) Vital Signs Temp Pulse Pulse Resp BP BP BP 09/29/21 21:39 119/77 09/29/21 20:47 186/122 H 09/29/21 19:50 99.0 F 94 H 24 212/128 H 09/29/21 18:17 99.7 F H 80 20 178/128 H 09/29/21 18:02 98.1 F 84 20 190/124 H 09/29/21 17:53 98.1 F 84 20 194/147 H 09/29/21 17:23 98.1 F 83 20 174/126 H 09/29/21 14:45 174/110 H 09/29/21 14:23 09/29/21 14:00 80 22 180/116 H 09/29/21 13:45 85 85 22 197/134 H 09/29/21 13:02 97.5 F L 87 22 204/124 H Pulse Ox 09/29/21 21:39 09/29/21 20:47 09/29/21 19:50 96 09/29/21 18:17 98 09/29/21 18:02 98 09/29/21 17:53 98 02/25/22 17:23 93 09/29/21 14:45 09/29/21 14:23 94 09/29/21 14:00 95 09/29/21 13:45 93 09/29/21 13:02 96 PG Care Time/CCT Total # of Minutes Spent Total Time Spent with Patient: Total time spent is greater than 50% in coordination of care (as documented) at patient's floor/unit and/or counseling patient: Coding Level of Care Code 93074 Office/OBS Consult Lvl 4 Diagnoses NSTEMI (non-ST elevated myocardial infarction) I21.4
--- NOTE | 2021-09-29 22:25 | Cardiac Catheterization ---
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 Clinical evaluation leading to the procedure CAD Presenation: Non STEMI Anginal Classification: CCS IV Heart Failure: No Cardiogenic Shock within 24 Hours: No Cardiac Arrest within 24 Hours: No Imaging Studies Past 6 Months: No Stress Studies Past 6 Months: No Diagnostic Physicians Name: Niraj Ashley MD Status: Urgent Closure Device Percutaneous Entry Location: Radial Closure Device: Radial Band Recommendations: PCI without planned CABG PCI Indication: PCI for high risk Non-RITU Lesion Segment Name: mid circumflex Culprit Artery: Yes Stenosis Prior to Rx (%): 100 Chronic Total Occlusion: No IVUS: No FFR: No Pre-Procedure JANAK Flow: 0 Previously Treated Lesion: No Lesion Complexity: Non-High/Non-C Lesion Length (mm): 18 Thrombus Present: Yes Bifurcation Lesion: No Guidewire Across Lesion: Stenosis Post-Procedure (%): 0 Post-Procedure JANAK Flow: 3 Devices(s) Deployed: Yes Yes Intraprocedure Events Significant Disection: No Perforation: No Cardiac Cath Procedure Full Procedure Date September 29, 2021 Pre-Procedure Diagnosis Pre-Procedure Diagnosis: Non STEMI AUC Score AUC Score: 8 Post-Procedure Diagnosis Post-Procedure Diagnosis: Severe CAD, Successful PCI and Elevated Intracardiac Pressures Procedure(s) Performed Procedure(s) Performed: Coronary Angiography, Left Heart Cath, Drug Eluting Stent and Ultrasound Guided Vascular Access Director [facility] Niraj Ashley MD Communications Intern(s) Victoriar Estimated Blood Loss Estimated Blood Loss: 15 Medication(s) Medication(s): Fentanyl, Heparin, Lidocaine 1%, Nicardipine, Nitroglycerin and Versed Summary of Findings Indication: High risk NSTEMI Access: 6 Fr right radial artery under ultrasound guidance Catheters: [place], EBU 3.75 guide, JR4 guide Findings: LM - normal caliber, no significant disease LAD - large caliber, proximal-mid luminal irregularities, distal vessel wraps around apex. Medium D2 without significant disease. Circumflex - large caliber, proximal luminal irregularities. 100% acute mid occlusion. Medium OM1 without significant disease. RCA -dominant, large caliber, 40 to 50% mid stenosis, diffuse distal disease prior to 98% distal stenosis before R-PDA. JANAK 1 flow in R-PDA/PLB. LVEDP - 29 -- PCI -- Antithrombotic therapy: Heparin, Ticagrelor Procedure: Left main cannulated with EBU 3.75 guide Box Toe Flanger Stitchdowns 50 wire passed across lesion into distal vessel Mid circumflex lesion predilated with 2.5 compliant balloon Dilated lesion stented with 3.0 x 22 mm Holmes WILFRED Stent post-dilated with 3.5 noncompliant balloon IC vasodilators administered for spasm Post procedure JANAK 3 flow, stent well expanded with minimal residual stenosis and no apparent cardiac complications. Attempt made at distal RCA intervention RCA cannulated with JR4 guide Whisper wire passed across distal stenosis into RPLB Difficult to pass 2.5 balloon across distal stenosis despite aid of telescope support catheter. Attempted to dilate with 2.5 balloon. Lesion thought to be more chronic and in the setting of recent CTA, procedure contrast load and CKD procedure stopped. Wire removed and stenosis/JANAK flow unchanged. Arterial Closure: TR Band Summary: 1. Severe 2 vessel coronary artery disease - 100% acute mid circumflex occlusion - 98% chronic distal RCA stenosis with JANAK I flow in RPDA/PLB 2. Elevated intracardiac filling pressure 3. Successful PCI of mid circumflex with single drug-eluting stent (3.0 x 22 mm Ramirez; post-dilated with 3.5 NC). Recommendations: To PCU for continued monitoring Trend troponin until peak and check echocardiogram IV hydration for possible JESSE/CKD Loaded with Ticagrelor 180mg in cork slabs sawyer Continue dual-antiplatelet therapy for at least 1 year Increase antihypertensive regimen, start statin Consult cardiac Rehab Will consider staged PCI of distal RCA at a later time pending clinical course. Hemodynamics Rest Ao:: 159/109/146 Final Ao: 139/101/119 LV: 159/29 Recommendations Recommendations: PCI without planned CABG Specimens Specimens: None Radiation Exposure (mGy) 4483 Contrast (mls) 130 Drains Drains: none Anesthesia moderate 1555 - 1659 Procedural Complication(s) None Disposition PCU I attest to the content of the Intraoperative Record and any orders documented therein. Any exceptions are noted below. Frogdice Card Cath Procedure Codes Cardiac Catheterization Procedure 1: Cardiovascular Cath Procedures: 78079 Coronaries and LHC (+/-LV) Therapeutic Services & Ancillary Proc Procedure 1: Cardiovascular Tx and Anc Procedures: 64250 Ultrasonic Guidance Vascular Access Moderate Sedation Procedure 1: Sedation/Anesthesia: 56125 Mod Sedation by the same physician;Init15 Min Child Age 5 & Up Procedure 2: Sedation/Anesthesia: 87460 Mod Sedation by the same physician; Jake [id number] Minutes Angioplasty Procedure 1: Cardiovascular Angioplasty Procedures: 74455 PTCA; ea addl branch of a major cor art RC LC LD Stenting Procedure 1: Cardiovascular Stent Procedures: 68028 Perc transluminal revascularization of acute sub/total occl, aMI PG Care Time/CCT Total # of Minutes Spent Total Time Spent with Patient: Total time spent is greater than 50% in coordination of care (as documented) at patient's floor/unit and/or counseling patient:
[2021-09-29] MEDS: ACETAMINOPHEN 325 MG TAB PO PRN (23:32)
[2021-09-30] MEDS ORDERED: LORazepam 1 MG TAB PO STA ×2 (01:54→20:21)
[2021-09-30] MEDS ORDERED: LORazepam 1 MG TAB ONE (02:23)
--- NOTE | 2021-09-30 04:11 | Communication Note ---
Date of Service: September 30, 2021 Received message around 8 PM on 09/29 that patient had chest discomfort and is status post catheterization with stent to mid circumflex and also had 95% occlusion of the RCA, which was unable to be stented at this time. EKG showed no significant changes from prior. BP was elevated to 200s over 100s at which point RN administered home medications, which were due. About 10 minutes after, BP was still at 186/122, at which point a dose of as needed hydralazine was given. 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 He had received his dose of Klonopin shortly before, but mention still feeling significantly anxious. BP was rechecked at this time and was found to be 119/77. Due to ongoing anxiety a dose of Ativan 1 mg p.o. was administered, which helped the symptoms. Around 11:30 PM, troponin resulted at >73. However, at this point EKG had been normal as above and patient was no longer having any chest discomfort. As such, consider that troponin more likely related to the initial cardiac insult that wa s treated with PCI and not likely to be a new event. He did continue to be somewhat anxious and felt he could not get to sleep. As such, additional dose of Ativan p.o. was given and patient responded well to this. No further chest discomfort reported. Resident Activity Tracking Resident Involvement: Communication Assistant Coverage Note Care Provided: Adult [facility]
[2021-09-30 05:46] LABS: Basophils # (auto) 0.02 K/uL (0-0.2); Basophils % (auto) 0.2 %; Eosinophils # (auto) 0.08 K/uL (0-0.5); Eosinophils % (auto) 0.7 %; Hematocrit (blood only) 45.4 % (42-52); Hemoglobin 15.9 g/dL (14.0-18.0); Immature Granulocytes # (auto) 0.03 K/uL (0.00-0.02); Immature Granulocytes % (auto) 0.3 %; Lymphocytes # (auto) 1.35 K/uL (1.2-3.4); Lymphocytes % (auto) 12.2 %; Mean Corpuscular Hemoglobin 32.4 pg (25-34); Mean Corpuscular Volume 92.7 fL (80-100); Mean Platelet Volume 10.1 fL (7.4-10.4); Monocytes # (auto) 1.41 K/uL (0.11-0.59); Monocytes % (auto) 12.8 %; Neutrophils # (auto) 8.16 K/uL (1.4-6.5); Neutrophils % (auto) 73.8 %; Platelet Count 189 K/uL (130-400); RDW Coefficient of Variation 13.9 % (11.5-14.5); RDW Standard Deviation 46.9 fL (36.4-46.3); White Blood Count 11.05 K/uL (4.8-10.8)
[2021-09-30] MEDS: ACETAMINOPHEN 325 MG TAB PO PRN ×2 (06:03→12:15)
[2021-09-30 06:10] LABS: Albumin Level 3.1 gm/dl (3.4-5.0); Bilirubin Direct 0.1 mg/dl (0-0.2); Bilirubin,Total 0.9 mg/dl (0.2-1.0); Calcium 8.6 mg/dl (8.5-10.1); Chol HDL Ratio 7.3 (0-5); Creatinine Clr Calc Pharmacy 70.2 ml/min; Est GFR (African American) 46.7 ml/min; Est GFR (Non-African American) 40.3 ml/min; Total Protein 5.5 gm/dl (6.0-8.3)
[2021-09-30 06:57] LABS: Estimated Average Glucose 114 mg/dl; Hemoglobin A1C 5.6 % (4.5-5.6)
--- NOTE | 2021-09-30 08:23 | Hospitalist Progress Note ---
Date of Service September 30, 2021 Assessment & Plan (1) NSTEMI (non-ST elevated myocardial infarction): Plan: s/p cardiac catheterization with 1 WILFRED to the circumflex it was acutely occluded. RCA has a 95% distal more chronic occlusion that was unable to be stented DAPT with aspirin and Brilinta atorvastatin 80 mg daily carvedilol 25 mg p.o. twice daily -Holding home losartan and HCTZ -Started hydralazine 25 mg p.o. 3 times daily, isosorbide 30 mg p.o. once daily, first dose now and titrate up as needed echocardiogram left ventricular function is low normal estimated be 50% ejection fraction with severe hypokinesis of the proximal and mid posterior lateral wall mild mitral regurgitation full his wall motion abnormalities may brain picker with revascularization via stenting of his circumflex artery after load reduction is achieved by hydralazine and isosorbide at this time lipid panel TC175,LDL 123, HDL24 hemoglobin A1c5.6 -Follow radial artery catheterization precautions, recommended he abstain from all of his usual heavy weightlifting activity at this time until cleared by cardiology For CAD consider cardiac rehab (2) Transaminitis: Plan: AST and ALT elevated upon arrival also remain elevated will continue to monitor given concern for need of statin therapy post discharge He is at risk for fatty liver with his morbid obesity (3) CKD (chronic kidney disease): Plan: CKD stage III, follows with nephrology as an outpatient, baseline creatinine 2.0 with history of nephrotic range proteinuria Cr is 1.92 pot procedure -Holding home losartan and HCTZ on admission, given additional CAD that was not interventional may consider keeping isosorbide/Hydralazine combination unless nephrology wants arb to help with proteinuria Pt with hyponatremia, (4) Benign essential hypertension: Plan: accelerated hypertension on arrival Holding home losartan HCTZ as above -Continue home carvedilol -Start hydralazine 25 mg p.o. 3 times daily and titrate up as needed -Start isosorbide 30 mg p.o. once daily and titrate up as needed -IV hydralazine 10 mg as needed for blood pressures greater than 180/100 -Anxiety also playing a role here-restart home anxiety medications to include BuSpar, clonazepam, Prozac, Seroquel (5) Proteinuria: Plan: As above (6) GORDY (generalized anxiety disorder): Plan: Continue home medications (7) Hyperlipidemia: Plan: total cholesterol 175, however statin for secondary risk prevention after MN, wi ll need to watch LFT's (8) Major depressive disorder: Plan: Continue buspar, clonazepam, fluoxitine quetiapine Plan: Full code Admission and Anticipated Discharge Date Admission Date: September 29, 2021 Subjective Patient has no further discomfort complaints or problems. He did ambulate in the unit without discomfort. However his repeat troponin was told to high to measure and subsequently is preferable he stay in the hospital after his acute MN until we Rocha troponin reseed especially given the fact that he has got some right coronary artery lesions. He does have some mild hyponatremia which we try to remedy with fluid restriction and have amended his hypertensive regimen to avoid nephrotoxic medications Review of Systems Review of Systems: Mild distress and fatigue no headache, no visual changes no speech or swallowing issues no further or additional chest pain, pressure or palpitations no shortness of breath, cough or wheezes no abdominal pain, nausea or vomiting, diarrhea or constipation no dysuria, hematuria or frequency no focal joint pain or swelling no back pain, CVA tenderness or radicular pain no bruising, bleeding or rashes no focal signs of weakness or numbness or altered sensation no complaints of anxiety or depression.. Physical Exam Physical Exam: The patient appeared well nourished and normally developed. Vital signs as documented. Head exam is normocephalic atraumatic Neck is without JVD, thyromegaly, or carotid bruits. Lungs are clear to auscultation, no focal loss of breath sounds Cardiac exam, Rhythm is regular.. No murmurs, rubs or gallops. Abdominal exam reveals normal bowel sounds, soft non tender, no masses Extremities are nonedematous and both pedal pulses are present Neurologic exam is alert and oriented, no focal loss of strength or sensation Skin is without bruises or rashes Psychologically is without concerns for anxiety or depression.. Results & Data Results & Data ([facility]) Vital Signs (Past 12 Hours) Vital Signs Temp Pulse Resp BP Pulse Ox 09/30/21 07:37 98.2 F 98 H 22 135/82 94 09/30/21 03:00 98.1 F 90 20 160/79 H 91 09/30/21 02:27 98.1 F 98 H 18 151/96 H 96 09/29/21 23:28 97.7 F 90 20 149/109 H 97 09/29/21 21:39 119/77 09/29/21 20:47 186/122 H PG Care Time/CCT Total # of Minutes Spent Total Time Spent with Patient: Total time spent is greater than 50% in coordination of care (as documented) at patient's floor/unit and/or counseling patient: Coding Level of Care Code 85597 Subseq Hosp Care Lvl 3 Diagnoses NSTEMI (non-ST elevated myocardial infarction) I21.4 Transaminitis R74.01 CKD (chronic kidney disease) N18.9 Benign essential hypertension I10 Proteinuria R80.9 GORDY (generalized anxiety disorder) F41.1 Hyperlipidemia E78.2 Hyperlipidemia type: mixed hyperlipidemia Major depressive disorder F33.0 Active/Remission status: currently active Major depression episode severity: mild Major depression recurrence: recurrent (1) Major depressive disorder Active/Remission status: currently active Major depression episode severity: mild Major depression recurrence: recurrent Qualified Code(s): F33.0 - Major depressive disorder, recurrent, mild (2) Hyperlipidemia Hyperlipidemia type: mixed hyperlipidemia Qualified Code(s): E78.2 - Mixed hyperlipidemia
[2021-09-30] MEDS ORDERED: amLODIPine BESYLATE 5 MG TAB PO SCH (09:00)
--- NOTE | 2021-09-30 09:47 | XCELERA ---
[id number]
[2021-09-30] MEDS: ASPIRIN 81 MG ECTAB PO SCH (09:49)
[2021-09-30] MEDS: busPIRone 15 MG TAB PO SCH ×2 (09:50→20:07)
[2021-09-30] MEDS: ATORVASTATIN 40 MG TAB PO SCH (09:50)
[2021-09-30] MEDS: FLUoxetine HCL 20 MG CAP PO SCH (09:51)
[2021-09-30] MEDS: carvediloL 25 MG TAB PO SCH ×2 (09:51→20:07)
[2021-09-30] MEDS: ISOSORBIDE MONO EXTENDED REL 30 MG TABCR PO SCH (09:52)
[2021-09-30] MEDS: hydrALAZINE HCL 25 MG TAB PO SCH ×3 (09:52→20:07)
[2021-09-30] MEDS: TICAGRELOR 90 MG TAB PO SCH ×2 (09:53→20:55)
[2021-09-30] MEDS: clonazePAM 1 MG TAB PO PRN ×2 (10:00→16:06)
--- NOTE | 2021-09-30 10:29 | Electrocardiogram Report ---
Test Reason : Blood Pressure : / mmHG Vent. Rate : 098 BPM Atrial Rate : 098 BPM P-R Int : 164 ms QRS Dur : 094 ms QT Int : 360 ms P-R-T Axes : 052 027 023 degrees QTc Int : 459 ms Sinus rhythm with Premature atrial complexes Possible Left atrial enlargement Inferior infarct (cited on or before 29-SEP-2021) Abnormal ECG When compared with ECG of 29-SEP-2021 14:43, Premature atrial complexes are now Present QRS duration has decreased ST no longer elevated in Anterior leads Confirmed by Bhupendra Orellana ([id number]) on 09/30/2021 10:29:24 AM Referred By: REFERRED SELF Confirmed By:Bhupendra Orellana
--- NOTE | 2021-09-30 13:23 | Cardiology Progress Note ---
Date of Service September 30, 2021 Assessment & Plan (1) Acute ME: Plan: -- acute 100% mid LCx post single WILFRED 2. Severe chronic non-culprit disease -- 98% distal RCA 3. Preserved LV function with inferolateral wall motion abnl 4. CKD - stage III 5. Hypertension with moderate LVH 6. Mild mitral regurgitation 7. Hyponatremia 8. Transaminitis 9. Borderline dilated aortic root - 4.2 cm Chest pain free. Awaiting repeat troponin Blood pressure improved. Electrically stable Renal function stable, mild hyponatremia No congestion on exam. CVP low on echo No access site complications. From a cardiac standpoint OK with discharge today if troponin down-trending. -- Continue DAPT with ASA/Ticagrelor -- Continue home carvedilol; can resume home lisinopril -- Stop prior HCTZ. Home on new imdur 30 mg BID -- Will check home BPs. If above goal will restart inpatient hydralazine -- Follow-up with me next week with repeat labs. -- Plan for staged PCI of distal RCA as an outpatient in 2-3 weeks. Admission and Anticipated Discharge Date Admission Date: September 29, 2021 Subjective Feeling well this morning. No chest pain overnight. No dyspnea. No other new concerns. Telemetry reviewed -- no events. Review of Systems Review of Systems: All systems reviewed & are unremarkable except as noted in HPI & below Physical Exam Physical Exam: General: Comfortable HEENT: Sclerae anicteric Lungs: Clear, few scattered wheezes Cardiac: Regular rate and rhythm, no murmurs. Vascular: 2+ radial, no hematoma, distal sensation intact Abdomen: Soft, nontender Extremities: Well perfused, no peripheral edema Neuro: Nonfocal Psych: Alert orient x3, normal affect and mood Results & Data ([facility]) Vital Signs (Past 12 Hours) Vital Signs Temp Pulse Pulse Resp BP Pulse Ox 09/30/21 11:18 91 H 09/30/21 11:07 98.2 F 93 H 20 144/92 H 96 09/30/21 07:37 98.2 F 98 H 22 135/82 94 09/30/21 03:00 98.1 F 90 20 160/79 H 91 09/30/21 02:27 98.1 F 98 H 18 151/96 H 96 PG Care Time/CCT Total # of Minutes Spent Total Time Spent with Patient: Total time spent is greater than 50% in coordination of care (as documented) at patient's floor/unit and/or counseling patient: Coding Level of Care Code 35438 Subseq Hosp Care Lvl 3 Diagnoses Acute ME I21.9
[2021-09-30] MEDS ORDERED: IBUPROFEN 200 MG TAB PO PRN (18:15)
[2021-09-30] MEDS: QUEtiapine FUMARATE 200 MG TAB PO SCH (20:07)
[2021-10-01] MEDS ORDERED: LORazepam 2 MG/1 ML VIAL IV STA (05:58)
[2021-10-01] MEDS ORDERED: LORazepam 1 MG TAB PO STA (06:12)
[2021-10-01 06:47] LABS: Basophils # (auto) 0.02 K/uL (0-0.2); Basophils % (auto) 0.2 %; Eosinophils # (auto) 0.09 K/uL (0-0.5); Hematocrit (blood only) 44.1 % (42-52); Hemoglobin 15.4 g/dL (14.0-18.0); Immature Granulocytes # (auto) 0.04 K/uL (0.00-0.02); Immature Granulocytes % (auto) 0.4 %; Lymphocytes # (auto) 0.86 K/uL (1.2-3.4); Lymphocytes % (auto) 9.6 %; Mean Corpuscular Hemoglobin 32.3 pg (25-34); Mean Corpuscular Hgb Conc 34.9 g/dL (32-36); Mean Corpuscular Volume 92.5 fL (80-100); Mean Platelet Volume 10.2 fL (7.4-10.4); Monocytes # (auto) 1.31 K/uL (0.11-0.59); Monocytes % (auto) 14.6 %; Neutrophils # (auto) 6.63 K/uL (1.4-6.5); Neutrophils % (auto) 74.2 %; Platelet Count 183 K/uL (130-400); RDW Coefficient of Variation 13.8 % (11.5-14.5); Red Blood Count 4.77 M/uL (4.7-6.1); White Blood Count 8.95 K/uL (4.8-10.8)
[2021-10-01 07:34] LABS: Alanine Aminotransferase 84 U/L (7-52); Albumin Level 3.2 gm/dl (3.4-5.0); Alkaline Phosphatase 36 U/L (34-104); Anion Gap 7 (3-11); Aspartate Aminotransferase 186 U/L (13-39); BUN Creatinine Ratio 11.7 (10-20); Bilirubin Direct 0.1 mg/dl (0-0.2); Bilirubin,Total 1.4 mg/dl (0.2-1.0); Blood Urea Nitrogen 23 mg/dl (6-23); Calcium 8.2 mg/dl (8.5-10.1); Carbon Dioxide 26 mmol/L (21-32); Chloride 94 mmol/L (98-107); Creatinine Clr Calc Pharmacy 66.6 ml/min; Est GFR (African American) 45.2 ml/min; Glucose 70 mg/dl (70-99(Fasting)); Potassium 3.5 mmol/L (3.5-5.1); Sodium 127 mmol/L (136-145); Total Protein 5.8 gm/dl (6.0-8.3); Troponin I > 73.00 ng/ml (0-0.04)
[2021-10-01] MEDS: hydrALAZINE HCL 25 MG TAB PO SCH (08:33)
[2021-10-01] MEDS: ATORVASTATIN 40 MG TAB PO SCH (08:33)
[2021-10-01] MEDS: ISOSORBIDE MONO EXTENDED REL 30 MG TABCR PO SCH (08:34)
[2021-10-01] MEDS: busPIRone 15 MG TAB PO SCH (08:34)
[2021-10-01] MEDS: FLUoxetine HCL 20 MG CAP PO SCH (08:36)
[2021-10-01] MEDS: ASPIRIN 81 MG ECTAB PO SCH (08:38)
[2021-10-01] MEDS: TICAGRELOR 90 MG TAB PO SCH (10:30)
[2021-10-01] MEDS: carvediloL 25 MG TAB PO SCH (10:30)
--- NOTE | 2021-10-01 14:36 | Discharge Summary ---
Date of Service October 01, 2021 Admission HPI Per Admitting Provider This pt is a 50 yo male with a h/o HTN, CKD stage 3, nephrotic range proteinuria, obesity, depression w/ anxiety, who presents to the ER with chest pain that has been intermittent for the last 2 weeks, but got much worse this morning. He has trouble describing it but it seemed to be substernal and somewhat sharp and at times he thought it was indigestion. He did take Tums a few times over the last 2 weeks which would make it go away. He also had some occasional numbness in the left arm. The pain today also made him short of breath. He reports that he regularly exercises and in fact lifted 500 pounds yesterday and moved many 100s of pounds of machinery around at work. He does admit that he has gained extra weight over the last year or so and wonders if that contributed to his chest pains. In the ER, he was found to have a troponin of 2.6, and some ST depressions in the lateral leads on ECG. His AST and ALT were also elevated, and he had a mild hyponatremia with a sodium of 132. His creatinine was slightly above his baseline at 2.2. He was significantly hypertensive with blood pressures close to 200 systolic and 130s diastolic. Because of the elevated troponin and chest pains, he was sent for CT angiogram of the chest which was negative for dissection or PE. 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 He does have CKD and had dye load with his CTA as well as the cardiac catheterization. Planned for staged PCI of the RCA on Saturday. He was loaded with Brilinta and blood pressures remained elevated upon arrival to the PCU. When I saw him, he continued to be quite anxious and requested his clonazepam, but said he was not having any further chest pains. Denies shortness of breath. Denied nausea. He was given IV hydralazine as well as p.o. hydralazine. I discussed his case with the vamper at the time of admission. Principal Diagnosis Acute [place] NSTEMI with drug-eluting stent placed in his circumflex artery Transaminitis improving cautious starting of statin therapy Kidney disease stage III Discharge Exam The patient appeared well Vital signs as documented. Lungs are clear to auscultation and appear unlabored Cardiac exam, Rhythm is regular.. No murmurs, rubs or gallops. Abdominal exam reveals normal bowel sounds, soft non tender, no masses Extremities are nonedematous and both pedal pulses are normal. Neurologic exam is alert and oriented, no focal loss of strength or sensation Skin is without bruises or rashes Psychologically is without concerns for anxiety or depression. Discharge Data Allergies Allergy/AdvReac Type Severity Reaction Status Date / Time amlodipine AdvReac Intermediate Leg Verified 09/29/21 18:47 swelling Consultations 09/29/21 15:02 Consult Cardiology Stat 09/29/21 17:52 Consult Cardiac Rehabilitation Routine Procedures Performed Operation Date: 09/29/21 15:00 Actual Procedures p Drug Eluting Stent SGl Vessel - Italo Ashley MD s Cath, Left with Cors and Vent - Italo Ashley MD s Cineradiography w/Routine Exam - Italo Ashley MD s Ultrasound Vascular Access - Italo Ashley MD s POBA SGL Vessel - Italo Ashley MD Ordered Studies 09/29/21 14:02 CT angio chest dissec wo/w con Stat 09/29/21 14:53 CL Cath Imgs for PACS use only Stat Hospital Course (1) NSTEMI (non-ST elevated myocardial infarction): s/p cardiac catheterization with 1 WILFRED to the circumflex it was acutely occluded. RCA has a 95% distal more chronic occlusion that was unable to be stented DAPT with aspirin and Brilinta atorvastatin 40 mg daily dose reduced from 80 due to concern for transaminitis if outpatient LFTs are appropriate may increase dose carvedilol 25 mg p.o. twice daily Discontinuing home losartan and HCTZ -Started hydralazine 25 mg p.o. 3 times daily, isosorbide 30 mg p.o. 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 via stenting of his circumflex artery after load reduction is achieved by hydralazine and isosorbide at this time lipid panel TC175,LDL 123, HDL24 hemoglobin A1c5.6 -Follow radial artery catheterization precautions, recommended he abstain from all of his usual heavy weightlifting activity at this time until cleared by cardiology For CAD consider cardiac rehab (2) Transaminitis: AST and ALT elevated upon arrival also remain elevated will continue to monitor given concern for need of statin therapy post discharge He is at risk for fatty liver with his morbid obesity (3) CKD (chronic kidney disease): CKD stage III, follows with nephrology as an outpatient, baseline creati nine 2.0 with history of nephrotic range proteinuria Cr is 1.92 pot procedure -Holding home losartan and HCTZ given additional CAD that was not interventional may consider keeping isosorbide/Hydralazine combination discussion for planned recatheterization and consideration of evaluating right coronary artery we will keep off the ARB and diuretic as may be challenged with additional contrast load follow-up with nephrology for consideration of reinstitution in the future Pt with hyponatremia, improving with fluid restriction (4) Benign essential hypertension: accelerated hypertension on arrival Holding home losartan HCTZ as above -Continue home carvedilol - hydralazine 25 mg p.o. 3 times daily and titrate up as needed -isosorbide 30 mg p.o. once daily and titrate up as needed -Anxiety also playing a role here-restart home anxiety medications to include BuSpar, clonazepam, Prozac, Seroquel (5) Proteinuria: As above (6) GORDY (generalized anxiety disorder): Continue home medications (7) Hyperlipidemia: total cholesterol 175, however statin for secondary risk prevention after KS, will need to watch LFT's (8) Major depressive disorder: Continue buspar, clonazepam, fluoxitine quetiapine Full code Total Time Total Time Spent Total Time Spent (In Minutes): It required greater than 30 minutes to prepare this patient for discharge Discharge Plan Discharge Items Patient Disposition: Home - Self-Care Reason For Visit: ACUTE [place] Discharge Diagnosis: heart attack stent placed in circumflex artery, jassi additional stent may be needed Activity: Per Instructions section Activity Comment: reduce stressors when you can, no intentional exercise until cleared Non-emergency contact: Primary Care Provider and Protection Engineer Call non-emergency contact if: your symptoms worsen and you have a fever Follow-up/Referrals: Chris Mckeon III, CRNP [Primary Care Provider] - Diet: Heart Healthy [facility] Attending Provider Instructions: You have had a heart attack (acute myocardial infarction). A heart attack occurs when a vessel that sends blood to your heart suddenly becomes blocked. This causes your heart not to work as well as it should. Follow these guidelines for home care and lifestyle changes. At home Check that you have a list of all the medicines you take. Take your medicines exactly as directed.Talk with your healthcare provider if your medicines aren't working for you. Together you can come up with another treatment plan. Remember that recovery after a heart attack takes time. Plan to take it easy for at least 4 to 6 weeks while you recover. Then return to normal activity when your doctor says its OK. Ask your doctor about joining a heart rehab program. This can help strengthen your heart and lungs and give you more energy and confidence. Tell your doctor if you are feeling depressed. Feelings of sadness are common after a heart attack. But it's important to speak to someone or seek counseling if you are feeling overwhelmed by these feelings. These feelings most often pass within a month. Call 911 right away if you have chest pain or pain that goes to your shoulder, neck, or back. Don't drive yourself to the hospital. Consider asking your family members to learn CPR. This is an important skill that can save lives when it's needed. Lifestyle changes Your heart attack might have been caused by cardiovascular disease. Your healthcare provider will work with you to make changes to your lifestyle. This will help the heart disease from getting worse. These changes will most likely be a combination of diet and exercise. Diet Your healthcare provider will tell you what changes you need to make to your diet. You may need to see a registered dietitian for help with these diet changes. These changes may include: Cutting back on how much fat and cholesterol you eat Cutting back on how much salt (sodium) you eat, especially if you have high blood pressure Eating more fresh vegetables and fruits Eating lean proteins such as fish, poultry, beans, and peas, and eating less red meat and processed meats Using low-fat dairy products Using vegetable and nut oils in limited amounts Limiting how many sweets and processed foods such as chips, cookies, and baked goods you eat Limiting how often you eat out. And when you do eat out, making better food choices. Not eating fried or greasy foods, or foods high in saturated fat Exercise Your healthcare provider may tell you to get more exercise if you haven't been physically active. Depending on your case, your provider may recommend an exercise program that is best for you. Warm-up 5 to 10 minutes before exercising and cool-down 5 to 10 minutes after exercising. The cardiac rehab program Ask your healthcare provider about a cardiac rehab program. Cardiac rehabilitation is a medically supervised program to help people who have heart disease. It's designed to improve heart recovery and your ability to function. It also helps prepare you for activities of daily living. People in this program may have recently had a heart attack or heart surgery. It may ease your symptoms and improve your sense of well-being. Your cardiac rehab program is designed to meet your needs. It's overseen by a cardiac doctor and a team of cardiac health providers. Your program may last from 6 weeks to more than a year. The goal of cardiac rehab is to help ease your symptoms and make your heart as h ealthy as possible. Your program may include: Exercise program. This makes you more fit, and helps your heart work better. Classes to help you change your lifestyle and habits. For example, classes and support to help you quit smoking. Or you may take a nutrition class to learn how to eat better. Stress management. You will learn how to manage stress to lower your anxiety. Other changes Your healthcare provider may also recommend that you: Lose weight. If you are overweight or obese, your provider will work with you to lose extra pounds (kilograms). Making diet changes and getting more exercise can help. A good goal is to lose your 10% of your body weight in one year. Stop smoking. Sign up for a stop-smoking program to make it more likely for you to quit for good. You can join a stop-smoking support group. Or ask your doctor about nicotine replacement products or medicines to help you quit. Learn to manage stress. Stress management techniques to help you deal with stress in your home and work life. This will help you feel better emotionally and ease the strain on your heart. Control other conditions. If you have diabetes, high blood pressure, kidney disease, or high cholesterol, your provider will work with you to control these diseases. All of these are risk factors for heart attacks. Follow-up Check that you have the details about all of your medical appointments once you leave the hospital. Or, make a follow-up appointment as directed. Call 911 Call 911 right away if you have: Chest pain that goes to your neck, jaw, back, or shoulder Shortness of breath When to call your healthcare provider Call your healthcare provider right away if you have: Lightheadedness, dizziness, or fainting Feeling of irregular heartbeat or fast pulse Pending Studies at Discharge: No Stand-Alone Forms: My [facility], Smoking Cessation Medications and DC Order Prescriptions: New Brilinta 90 mg Tablet 90 mg PO BID Qty: 60 RF: 3 atorvastatin 40 mg Tablet 80 mg PO QAM Qty: 30 RF: 3 isosorbide mononitrate 30 mg Tablet Extended Release 24 Hr 30 mg PO QAM Qty: 30 RF: 3 hydralazine 25 mg Tablet 25 mg PO TID Qty: 90 RF: 3 nitroglycerin [Nitrostat] 0.4 mg Tablet, Sublingual 0.4 mg sublingual PRN PRN (Reason: chest pain) Qty: 1 RF: 2 atorvastatin 40 mg tablet 40 mg PO DAILY Qty: 30 RF: 5 Continued quetiapine 200 mg tablet 200 mg PO HS Qty: 90 RF: 0 clonazepam 1 mg tablet 1 mg PO TID PRN (Reason: anxiety) Qty: 60 RF: 0 fluoxetine 20 mg capsule 20 mg PO DAILY Qty: 90 RF: 1 buspirone 15 mg tablet 15 mg PO BID RF: 0 omega-3 fatty acids [Fish Oil Concentrate] 1,000 mg capsule 1,000 mg PO DAILY RF: 0 tramadol 100 mg tablet 100 mg PO DAILY PRN (Reason: Pain) RF: 0 carvedilol 25 mg tablet 25 mg PO BID Qty: 180 RF: 3 hydrochlorothiazide 25 mg tablet 25 mg PO DAILY Qty: 90 RF: 3 aspirin 81 mg tablet,delayed release (DR/EC) 81 mg PO BID Qty: 60 RF: 0 multivitamin Tablet 1 tab PO BID RF: 0 Amino Acid Capsule 1 cap PO DAILY RF: 0 cholecalciferol (vitamin D3) [Vitamin D3] 50 mcg (2,000 unit) tablet 10,000 unit PO DAILY RF: 0 ascorbic acid (vitamin C) [Vitamin C] 1,000 mg tablet 1 g PO BID RF: 0 zinc 100 mg tablet 200 mg PO DAILY RF: 0 Discontinued lisinopril 20 mg tablet 20 mg PO BID RF: 0 ibuprofen 600 mg tablet 600 mg PO Q6H PRN (Reason: Pain) RF: 0 Discharge Orders: Discharge Order (Routine); Ordered 10/01/21 Ordered By: Subhash Draper Admission Data Admit Date/Time: 09/29/21 17:53 Attending Provider: Subhash Draper Admit Provider: Italo Ashley Primary Care Provider: Chris Mckeon III Other Providers: Italo Ashley Other Interventions: Discharge Summary Assessment (RN) Last Done: 10/01/21 11:49 Coding Level of Care Code D/C DAY MANAGEMENT >30 MINS Diagnoses NSTEMI (non-ST elevated myocardial infarction) I21.4 Transaminitis R74.01 CKD (chronic kidney disease) N18.9 Benign essential hypertension I10 Proteinuria R80.9 GORDY (generalized anxiety disorder) F41.1 Hyperlipidemia E78.2 Hyperlipidemia type: mixed hyperlipidemia Major depressive disorder F33.0 Major depression recurrence: recurrent Active/Remission status: currently active Major depression episode severity: mild
== END 2021-10-01 13:02 | disposition home or self-care (01) | DRG 247 ==
LOC: ED 12:54 → CC 15:30 → 2E 15:30 → CC 16:29 → SUATTDRO 17:53

== ENCOUNTER 2022-10-11 11:52 | Observation (INO) ==
--- NOTE | 2022-09-24 12:29 | PAT Medication Instructions ---
Medication Instructions Date of Service September 24, 2022 Home Medications Medication Instructions Recorded nitroglycerin 0.4 mg sublingual 0.4 mg sublingual PRN PRN chest 10/01/21 tablet (Nitrostat) pain #1 btl tadalafil 20 mg tablet (Cialis) 20 mg PO .COMPLEX #30 tabs 11/07/21 furosemide 20 mg tablet 20 mg PO BID #180 tabs 11/21/21 carvedilol 25 mg tablet 25 mg PO BID #180 tabs 12/05/21 lisinopril 10 mg tablet 10 mg PO BID #180 tabs 12/08/21 buspirone 15 mg tablet 15 mg PO BID 90 days #180 tabs 03/08/22 quetiapine 200 mg tablet 200 mg PO HS #90 tabs 07/20/22 lorazepam 1 mg tablet 1 mg PO TID PRN anxiety #60 tabs 08/14/22 atorvastatin 80 mg tablet 80 mg PO QAM #30 tabs 08/15/22 clopidogrel 75 mg tablet 75 mg PO DAILY #30 tabs 08/29/22 multivitamin 1 tab PO BID amino acids (Amino Acid capsule) 1 cap PO UD ascorbic acid (vitamin C) 1,000 mg tablet (Vitamin C) 1 g PO BID cholecalciferol (vitamin D3) 50 mcg (2,000 unit) tablet (Vitamin D3) 10,000 unit PO DAILY omega-3 fatty acids 1,000 mg capsule (Fish Oil Concentrate) 1,000 mg PO BID nitroglycerin 0.4 mg sublingual tablet (Nitrostat) 0.4 mg sublingual PRN PRN chest pain tadalafil 20 mg tablet (Cialis) 20 mg PO .COMPLEX furosemide 20 mg tablet 20 mg PO BID carvedilol 25 mg tablet 25 mg PO BID lisinopril 10 mg tablet 10 mg PO BID buspirone 15 mg tablet 15 mg PO BID quetiapine 200 mg tablet 200 mg PO HS lorazepam 1 mg tablet 1 mg PO TID PRN anxiety atorvastatin 80 mg tablet 80 mg PO QAM clopidogrel 75 mg tablet 75 mg PO DAILY aspirin-caffeine 500 mg-32.5 mg tablet (Whitney [employer] and Body) 1 tab PO BID meloxicam 15 mg tablet 15 mg PO DAILY PRN Pain zinc sulfate-vitamin C 200 mg-100 mg tablet 1 tab PO BID Continue as directed nitroglycerin 0.4 mg sublingual tablet (Nitrostat) 0.4 mg sublingual PRN PRN chest pain (if needed) ASK your surgeon for instructions amino acids (Amino Acid capsule) 1 cap PO UD aspirin-caffeine 500 mg-32.5 mg tablet (Whitney Back and Body) 1 tab PO BID meloxicam 15 mg tablet 15 mg PO DAILY PRN Pain ASK your prescriber and surgeon clopidogrel 75 mg tablet 75 mg PO DAILY STOP taking 2 weeks before surgery (or as soon as possible if surgery is within 2 weeks) omega-3 fatty acids 1,000 mg capsule (Fish Oil Concentrate) 1,000 mg PO BID STOP taking 24 hours before surgery tadalafil 20 mg tablet (Cialis) 20 mg PO .COMPLEX DO NOT take the morning of surgery multivitamin 1 tab PO BID ascorbic acid (vitamin C) 1,000 mg tablet (Vitamin C) 1 g PO BID cholecalciferol (vitamin D3) 50 mcg (2,000 unit) tablet (Vitamin D3) 10,000 unit PO DAILY furosemide 20 mg tablet 20 mg PO BID lisinopril 10 mg tablet 10 mg PO BID zinc sulfate-vitamin C 200 mg-100 mg tablet 1 tab PO BID Take morning of surgery With a small sip of water, OTHERWISE NOTHING TO EAT OR DRINK AFTER MIDNIGHT: carvedilol 25 mg tablet 25 mg PO BID buspirone 15 mg tablet 15 mg PO BID lorazepam 1 mg tablet 1 mg PO TID PRN anxiety (if needed) atorvastatin 80 mg tablet 80 mg PO QAM Take evening before surgery multivitamin 1 tab PO BID ascorbic acid (vitamin C) 1,000 mg tablet (Vitamin C) 1 g PO BID furosemide 20 mg tablet 20 mg PO BID carvedilol 25 mg tablet 25 mg PO BID lisinopril 10 mg tablet 10 mg PO BID buspirone 15 mg tablet 15 mg PO BID quetiapine 200 mg tablet 200 mg PO HS lorazepam 1 mg tablet 1 mg PO TID PRN anxiety (if needed) zinc sulfate-vitamin C 200 mg-100 mg tablet 1 tab PO BID Other Notes If you have any questions please call us at [phone] or [phone] or [phone] or [phone]
--- NOTE | 2022-10-02 13:49 | Anesthesiology Consultation ---
Date of Service October 02, 2022 Assessment & Plan (1) Encounter for pre-operative examination: Chart Review Chart Review: Acceptable Risk for Surgery (pending response from nephro re: creatinine ) and Patient seen in Pre Admission Testing -Will send workload note to nephro re: elevated creat on preop labs- will await response -Pt is NOT an ideal Outpatient Joint candidate Per PAT appt on 10/02/22, patient denies any recent travel or large group activities. Pt is NOT vaccinated for Covid. Will leave to surgeon's discretion if preop Covid testing needed. Educated on importance of using Covid precautions one week prior to surgery Pt seen by cardio 09/24/22= patient seen for follow-up. History of CAD status post CA/PCI September 2021 of left circumflex and later staged PCI of RCA October 2021. Also history of borderline dilated aortic root4.2 cm. Stable from a cardiac standpoint. With current activity no recurrent anginal symptoms. No signs of heart failure and PVD on exam. BP well controlled. With patient's history of multivessel CAD will plan to continue DAPT with ASA, Plavix for an additional year. Plavix can be interrupted for procedures as needed. "Has scheduled right shoulder replacement next month. From a cardiac standpoint okay to proceed without any additional cardiac testing. Plavix can be held 5 days prior to procedure and resumed when safe from a surgical standpoint." Right quadriceps tendon repair (09/09/20): Grade view 1 with glidescope #4, ETT 8.0 + PNB at [facility]. No issues noted per post-op anesthesia progress note. Teaching & Discussion Pre-Anesthesia Teaching/Discussion Notes: Instructed NPO after midnight before surgery,except medications with 15 cc of water. Medication instructions provided according to the PAT guidelines. History Surgery Operation Date: 10/11/22 09:20 Proposed Procedures p Right Total Shoulder Arthroplasty - Meng Tellez MD Height/Weight Height: 6 ft Weight: 138.5 kg Allergies Allergy/AdvReac Type Severity Reaction Status Date / Time amlodipine AdvReac Intermediate Leg Verified 10/02/22 15:05 swelling clonazepam AdvReac Intermediate "feel like Verified 10/02/22 15:05 a zombie" Medications Home Medications Medication Instructions Recorded Confirmed Last Taken multivitamin 1 tab PO BID 10/21/20 10/02/22 Unknown amino acids (Amino Acid capsule) 1 cap PO UD 06/16/21 09/24/22 Unknown ascorbic acid (vitamin C) 1,000 mg 1 g PO BID 06/16/21 09/24/22 09/29/21 tablet (Vitamin C) cholecalciferol (vitamin D3) 50 10,000 unit PO DAILY 06/16/21 10/02/22 09/29/21 mcg (2,000 unit) tablet (Vitamin D3) omega-3 fatty acids 1,000 mg 1,000 mg PO BID 06/16/21 10/02/22 Unknown capsule (Fish Oil Concentrate) nitroglycerin 0.4 mg sublingual 0.4 mg sublingual PRN PRN chest 10/01/21 10/02/22 Unknown tablet (Nitrostat) pain #1 btl tadalafil 20 mg tablet (Cialis) 20 mg PO .COMPLEX #30 tabs 11/07/21 10/02/22 Unknown furosemide 20 mg tablet 20 mg PO BID #180 tabs 11/21/21 10/02/22 Unknown carvedilol 25 mg tablet 25 mg PO BID #180 tabs 12/05/21 10/02/22 Unknown lisinopril 10 mg tablet 10 mg PO BID #180 tabs 12/08/21 10/02/22 Unknown buspirone 15 mg tablet 15 mg PO BID 90 days #180 tabs 03/08/22 10/02/22 Unknown quetiapine 200 mg tablet 200 mg PO HS #90 tabs 07/20/22 10/02/22 Unknown lorazepam 1 mg tablet 1 mg PO TID PRN anxiety #60 tabs 08/14/22 10/02/22 Unknown atorvastatin 80 mg tablet 80 mg PO QAM #30 tabs 08/15/22 10/02/22 Unknown clopidogrel 75 mg tablet 75 mg PO DAILY #30 tabs 08/29/22 09/24/22 Unknown aspirin-caffeine 500 mg-32.5 mg 1 tab PO BID 09/21/22 09/24/22 Unknown tablet (Whitney Back and Body) meloxicam 15 mg tablet 15 mg PO DAILY PRN Pain 09/21/22 10/02/22 Unknown zinc sulfate-vitamin C 200 mg-100 1 tab PO BID 09/21/22 10/02/22 Unknown mg tablet Past Medical History Medical History Anxiety and depression CAD (coronary artery disease) 09/2021 > 1 stent to LCx 10/23/2021 > later staged PCI- 1 stent of RCA Follows with Dr. Ashley CKD (chronic kidney disease) Creatinine baseline 2.0 (follows with nephro) Dry cough Possibly due to Lisinopril vs pet allergy - chronic and stable - improves with warmer weather History of non-ST elevation myocardial infarction (NSTEMI) 09/2021 Hyperlipidemia Hypertension Post traumatic stress disorder Exercise / Class Metabolic Activity II 4-5 Yardwork/Stairs/Walk up hill (one flight of stairs - no chest pain or SOB ) Past Family History Family History Father Myocardial infarction COPD (chronic obstructive pulmonary disease) Hypertension Family history of diabetes mellitus Grandfather Lung cancer Mother COPD (chronic obstructive pulmonary disease) Hypertension Grandfather (Paternal) Myocardial infarction Family history of diabetes mellitus Other No family history of adverse response to anesthesia Denies family history of Ovarian cancer Prostate cancer Breast cancer Colorectal cancer Past Surgical History Surgical History History of cardiac cath 09/2021 > 1 stent 10/2021 > 1 stent S/P hernia surgery umbilical S/P tendon repair Right quadriceps tendon repair (09/09/20): Grade view 1 with glidescope #4, ETT 8.0 + PNB at [facility]. No issues noted per post-op anesthesia progress note. Past Anesthesia History No Hx of Anesthesia Complications and No Family Hx of Anesthesia Complications History of PONV No Hx of PONV and No Hx of Motion Sickness Social History Smoking Status: Never smoker Do You Dip or Chew Tobacco: No Hx Alcohol Use: No Alcohol type: wine alcohol intake frequency: holidays/special occasions only Hx Substance Use: No substance use type: does not use Review of Systems Chronic cough- stable/mild- feels medication vs allergy related DEUTSCH- chronic/mild- feels secondary to deconditioning - stable Occ reflux- relieved OTC medications Snoring - no hx of sleep study Patient denies chest pain, shortness of breath at rest, wheezing, palpitations. No hx of seizures, stroke. No hx of blood clots or blood transfusions Physical Exam Vital Signs VITALS BP 134/84 P 62 TEMP 98.0 SP02 95% RESP 16 Constitutional no acute distress ENMT Mouth: + small oral opening; no TMJ clicking Thyromental Distance: > or= 3.5 Finger Breadths (4.0) Mallampati Class: III Neck + limited neck extension (minimal) Respiratory normal respiratory effort; no respiratory distress Auscultation: lungs clear to auscultation bilaterally; no wheezes Cardiovascular Rate/Rhythm: regular rate and regular rhythm Heart Sounds: no murmur Vessels: no carotid bruit Heart sounds mildly diminished throughout Musculoskeletal Spine: no pain with cervical ROM Extremities: extremities normal to inspection Psychiatric Orientation: alert Lab Results Anesthesia Preop Results Results Anesthesia Widget: WBC 4.30 K/ul (4.8-10.8) L 10/02/22 Hgb 16.9 g/dl (14.0-18.0) 10/02/22 Hct 48.8 % (42.0-52.0) 10/02/22 Plt 127 K/uL (130-400) L 10/02/22 Na 140 mmol/L (136-145) 10/02/22 K 4.4 mmol/L (3.5-5.1) 10/02/22 Cl 105 mmol/L (98-107) 10/02/22 CO2 31 mmol/L (21-32) 10/02/22 BUN 43 mg/dl (6-23) H 10/02/22 Creat 2.60 mg/dl (0.6-1.4) H 10/02/22 Glucose Level 90 mg/dl (70-99(Fasting)) 10/02/22 PT 11.4 Seconds (9.0-12.0) 10/02/22 PTT 28.5 Seconds (21.0-31.0) 10/02/22 INR 1.1 (0.9-1.1) 10/02/22 Urine Color Yellow 10/02/22 Urine Appearance Clear (Clear) 10/02/22 Urine pH 5.5 (4.5-7.5) 10/02/22 Urine Specific Michie 1.009 (1.000-1.030) 10/02/22 Urine Protein 2+ (Negative) H 10/02/22 Urine Glucose (UA) Negative (Negative) 10/02/22 Urine Ketones Negative (Negative) 10/02/22 Urine Blood Negative (Negative) 10/02/22 Urine Nitrite Negative (Negative) 10/02/22 Urine Bilirubin Negative (Negative) 10/02/22 Urine Urobilinogen Negative (Negative) 10/02/22 Urine Leukocyte Esterase Negative (Negative) 10/02/22 Urine WBC (Auto) 1-5 /hpf (0-5) 10/02/22 Urine RBC (Auto) 0-4 /hpf (0-4) 10/02/22 Urine Hyaline Casts (Auto) 0 /lpf (0-5) 10/02/22 Urine Epithelial Cells (Auto) 0-5 /lpf (0-5) 10/02/22 Urine Bacteria (Auto) Negative (Negative) 10/02/22 Blood Type A Positive 10/02/22 Antibody Screen NEGATIVE 10/02/22 Testing Laboratory Results Increased creatinine - follows nephro- usually creat around 2.0- will send note to nephro Electrocardiogram Date: 10/02/22 Findings: + SB @ (59bpm ) Inferior infarct (cited on or before Sep 29, 2021) Chest X-Ray Date: 10/02/22 Findings: + NAD and + cardiomegaly (stable) Echocardiogram Date: 09/30/21 EF: 50% Other Findings: + LVH (mild/concentric ) LV systolic function is low normal Severe HK of the proximal and mid posterolateral wall RA and LA mildly dilated Mild MR Cardiac Catheterization Date: 10/23/21 Summary of Findings Indication: Staged PCI of RCA. Acute CA 3 weeks ago with occluded distal circumflex treated with single drug-eluting stent. Residual 98% distal RCA stenosis Summary: 1. Successful PCI of distal RCA with single drug-eluting stent (2.5 x 18 mm On yx; postdilated with 3.0 NC). Cardiac cath 09/29/21= Findings: LM - normal caliber, no significant disease LAD - large caliber, proximal-mid luminal irregularities, distal vessel wraps around apex. Medium D2 without significant disease. Circumflex - large caliber, proximal luminal irregularities. 100% acute mid occlusion. Medium OM1 without significant disease. RCA -dominant, large caliber, 40 to 50% mid stenosis, diffuse distal disease prior to 98% distal stenosis before R-PDA. JANAK 1 flow in R-PDA/PLB. Summary: 1. Severe 2 vessel coronary artery disease - 100% acute mid circumflex occlusion - 98% chronic distal RCA stenosis with JANAK I flow in RPDA/PLB 2. Elevated intracardiac filling pressure 3. Successful PCI of mid circumflex with single drug-eluting stent (3.0 x 22 mm [place]; post-dilated with 3.5 NC). COVID-19 Risk Screen Screening Information COVID-19 Screen Date: 10/02/22 Exposure 21 Days Family/Household +COVID Last 21 Days: No Exposure 10 Days Any COVID Exposure Last 10 Days: No Symptoms Last 10 Days Experienced COVID Sx Last 10 Days: No + COVID 0-90 Days COVID + in Last 0-90 Days: No Risk Plan COVID Risk Plan: No Risk Identified Patient Education COVID Preop Screening Education Complete: Yes
--- NOTE | 2022-10-08 10:16 | History & Physical Report ---
Date of Service October 08, 2022 Assessment & Plan (1) Primary osteoarthritis, right shoulder: Plan: Treatment options discussed with the patient. He has failed conservative measures and would like to proceed with surgical intervention. Risks, benefits and alternatives to surgery including but not limited to infection, DVT, pain, stiffness, need for revision surgery, damage to blood vessels, damage to nerves, PE, , were discussed with the patient and they wish to proceed. Plan for right total shoulder arthroplasty scheduled for October 11 at [facility] with Dr. Tellez. Plan on resuming home anticoagulants postop. Plan on outpatient physical therapy. Likely plan on Nucynta postop for pain management. All questions answered. History of Present Illness Chief Complaint: Right shoulder pain Primary Care Provider: Chris Mckeon, III, [employer] 51-year-old male with past medical history significant for hypertension, CKD, CAD status post stent placement, history of DC, longstanding right shoulder pain. Patient's shoulder pain is interfering with his daily activities. He has failed conservative measures. He would like to proceed with surgical intervention. Patient denies headaches, sweats, fevers, chills, double vision, blurred vision, cough, sore throat, dysphagia, chest pain, sob, wheezing, n/ v/d/c, numbness, tingling, fatigue, urinary symptoms, mood disorders. ROS positive for right shoulder pain and stiffness. Allergies Allergy/AdvReac Type Severity Reaction Status Date / Time amlodipine AdvReac Intermediate Leg Verified 10/02/22 15:05 swelling clonazepam AdvReac Intermediate "feel like Verified 10/02/22 15:05 a zombie" Home Medications Medication Instructions Recorded Confirmed Type multivitamin 1 tab PO BID 10/21/20 10/02/22 History amino acids (Amino Acid capsule) 1 cap PO UD 06/16/21 09/24/22 History ascorbic acid (vitamin C) 1,000 mg 1 g PO BID 06/16/21 09/24/22 History tablet (Vitamin C) cholecalciferol (vitamin D3) 50 10,000 unit PO DAILY 06/16/21 10/02/22 History mcg (2,000 unit) tablet (Vitamin D3) omega-3 fatty acids 1,000 mg 1,000 mg PO BID 06/16/21 10/02/22 History capsule (Fish Oil Concentrate) nitroglycerin 0.4 mg sublingual 0.4 mg sublingual PRN PRN chest 10/01/21 10/02/22 Rx tablet (Nitrostat) pain #1 btl tadalafil 20 mg tablet (Cialis) 20 mg PO .COMPLEX #30 tabs 11/07/21 10/02/22 Rx furosemide 20 mg tablet 20 mg PO BID #180 tabs 11/21/21 10/02/22 Rx carvedilol 25 mg tablet 25 mg PO BID #180 tabs 12/05/21 10/02/22 Rx lisinopril 10 mg tablet 10 mg PO BID #180 tabs 12/08/21 10/02/22 Rx buspirone 15 mg tablet 15 mg PO BID 90 days #180 tabs 03/08/22 10/02/22 Rx quetiapine 200 mg tablet 200 mg PO HS #90 tabs 07/20/22 10/02/22 Rx lorazepam 1 mg tablet 1 mg PO TID PRN anxiety #60 tabs 08/14/22 10/02/22 Rx atorvastatin 80 mg tablet 80 mg PO QAM #30 tabs 08/15/22 10/02/22 Rx clopidogrel 75 mg tablet 75 mg PO DAILY #30 tabs 08/29/22 09/24/22 Rx aspirin-caffeine 500 mg-32.5 mg 1 tab PO BID 09/21/22 09/24/22 History tablet (Whitney Back and Body) meloxicam 15 mg tablet 15 mg PO DAILY PRN Pain 09/21/22 10/02/22 History zinc sulfate-vitamin C 200 mg-100 1 tab PO BID 09/21/22 10/02/22 History mg tablet Past Med/Surg History Medical History Anxiety and depression CAD (coronary artery disease) 09/2021 > 1 stent to LCx 10/23/2021 > later staged PCI- 1 stent of RCA Follows with Dr. Ashley CKD (chronic kidney disease) Creatinine baseline 2.0 (follows with nephro) Dry cough Possibly due to Lisinopril vs pet allergy - chronic and stable - improves with warmer weather History of non-ST elevation myocardial infarction (NSTEMI) 09/2021 Hyperlipidemia Hypertension Post traumatic stress disorder Surgical History History of cardiac cath 09/2021 > 1 stent 10/2021 > 1 stent S/P hernia surgery umbilical S/P tendon repair Right quadriceps tendon repair (09/09/20): Grade view 1 with glidescope #4, ETT 8.0 + PNB at [facility]. No issues noted per post-op anesthesia progress note. Family History Father Myocardial infarction COPD (chronic obstructive pulmonary disease) Hypertension Family history of diabetes mellitus Grandfather Lung cancer Mother COPD (chronic obstructive pulmonary disease) Hypertension Grandfather (Paternal) Myocardial infarction Family history of diabetes mellitus Other No family history of adverse response to anesthesia Denies family history of Ovarian cancer Prostate cancer Breast cancer Colorectal cancer Social History Smoking Status: Never smoker Second Hand Exposure: Yes (as a child); Hx Alcohol Use: No Hx Substance Use: No Preferred Language: [place] Citizen Communication Ability: Effective Visual Impairment: No Limitations Hearing Ability: Normal Shank Carrier Required: No Beliefs That Will Affect Care: None marital status: Current Living Situation: Spouse and Family current occupational status: employed 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 Feels Safe at Home: Yes Childhood Exposure to Second-Hand Smoke: Yes Dental Care, Regularly: Yes Physical Activity Frequency: 3-4 Times per Week Seatbelt Use: never Sunscreen Use: No Assistive Devices: Glasses Review of Systems All systems reviewed & are unremarkable except as noted in HPI & below Physical Exam Constitutional: well developed and well nourished; no acute distress Eyes: PERRL, conjunctivae normal, anicteric sclerae ENMT: external ear and nose normal, oropharynx normal Neck: trachea midline, no thyromegaly Respiratory: normal respiratory effort, lungs clear to auscultation Cardiovascular: RRR, no murmur, no edema Musculoskeletal: Right shoulder: Tenderness diffusely in anterior glenoid. Crepitation with range of motion. Painful range of motion. Abduction to 120 degrees, external rotation to 70 degrees, forward flexion of 120 degrees. He has pain with strength testing. [id number] crepitation with resisted abduction. Skin: no rashes, warm and dry Neurologic: patellar DTR's 2+ bilat, sensation intact Psychiatric: A+Ox3, euthymic affect Results & Data ([facility]) Diagnostic Findings Right shoulder radiographs demonstrate end-stage osteoarthritis right shoulder, [id number] glenohumeral joint. There is cystic changes of the glenoid. MRI demonstrates intact rotator cuff.
[~2022-10-11 11:52] MED LIST changes: +ACETAMINOPHEN 500 MG TAB PO SCH; -AGM875 PO; -ALLDSR/24 PO; -ALPR-411 PO; +BUPIVACAINE 0.5 % 5 MG/1 ML PF 10ML VIAL ONE; +CeleBREX 200 MG CAP PO SCH; +DEXAMETHASONE SOD INJ 4 MG/ML VIAL ONE; +FAMOTIDINE 20 MG TAB PO SCH; +GABAPENTIN 900 MG DOSE PO SCH; +GLYCOPYRROLATE 0.2 MG/ML VIAL ONE; +LR 15ML/HR IV SCH; +METOCLOPRAMIDE HCL 10 MG TABLET PO SCH; +MIDAZOLAM HCL 1 MG/ML 2ML VIAL ONE; +ONDANSETRON INJ 2 MG/ML 2 ML VIAL ONE; +PROPOFOL IV EMULSION 10 MG/ML 20 ML VIAL IV ONE; +ROCURONIUM BROMIDE 10 MG/ML 5 ML VIAL IV ONE; +SUCCINYLCHOLINE CHLORIDE 20 MG/ML 10 ML VIAL IV ONE; +SUGAMMADEX SODIUM 200 MG/2 ML VIAL IV ONE; -TEMA30CA4 PO; +TRANEXAMIC ACID 1,000 MG **IV Intra-op IV SCH; +TRANEXAMIC ACID 1,000 MG **IV Pre-op IV SCH; +dexAMETHasone 4 MG TAB PO SCH; +fentaNYL citrate PF 100 MCG/2 ML VIAL ONE
--- NOTE | 2022-10-11 12:19 | History & Physical Bridge Note ---
Date of Service October 11, 2022 History & Physical Bridge Note I have examined the patient, reviewed the History & Physical and in the interval since the performance of the History & Physical I have noted the following changes of clinical significance: no changes noted
[2022-10-11] MEDS ORDERED: ATROPINE SULFATE 0.1 MG/ML 10ML SYR IV PRN (13:12)
[2022-10-11] MEDS ORDERED: ONDANSETRON INJ 2 MG/ML 2 ML VIAL IV PRN ×2 (13:12→19:54)
[2022-10-11] MEDS ORDERED: fentaNYL citrate PF 100 MCG/2 ML VIAL IV PRN (13:12)
[2022-10-11] MEDS ORDERED: EpINEphrine HCL INJ 1 MG/ML 1ML SYRINGE ONE (13:29)
[2022-10-11] MEDS ORDERED: EPINEPHrine INJ 1 MG/ML AMP ONE (13:30)
[2022-10-11] MEDS ORDERED: PHENYLEPHRINE HCL 10 MG/ML VIAL ONE (14:17)
[2022-10-11] MEDS ORDERED: ePHEDrine sulfate 50 MG/ML AMP ONE (14:17)
[2022-10-11] MEDS ORDERED: ROCURONIUM BROMIDE 10 MG/ML 5 ML VIAL IV ONE ×5 (16:22)
[2022-10-11] MEDS ORDERED: ONDANSETRON INJ 2 MG/ML 2 ML VIAL ONE (17:12)
[2022-10-11] MEDS ORDERED: fentaNYL citrate PF 100 MCG/2 ML VIAL ONE (17:46)
[2022-10-11] MEDS ORDERED: ceFAZolin 330 MG/ML 1 GM VIAL ONE (18:27)
[2022-10-11] MEDS ORDERED: LARYING-O-JET KIT (LTA) ONE (18:36)
--- NOTE | 2022-10-11 19:09 | Operative Report ---
Post Operative Report Pre & Post Diagnosis Operation Date: 10/11/22 14:00 Pre-Op Diagnosis: Right Shoulder Primary Osteoarthritis glenohumeral joint end-stage, obesity BMI 40 Post-Op Diagnosis: Right Shoulder Primary Osteoarthritis glenohumeral joint end-stage, marked biceps tenosynovitis with tendinopathy biceps bone spurs bicipital groove, obesity BMI 40 I identified the patient and participated in the time-out.: Yes Procedure Operation Date: 10/11/22 14:00 Actual Procedures p Right Total Shoulder Arthroplasty, Cemented(Right), biceps tenodesis and tenosynovectomy biceps tendon, increased difficulty obesity BMI 40- Meng Tellez MD Surgeon Meng Tellez MD Culinary Director Dexter BOATENG, Maite BOATENG Estimated Blood Loss 325 Findings Consistent with Post-Op Diagnosis Specimens None Drains 2 Hemovac Anesthesia Type MAC Spinal Regional Complications none Disposition Accompanied Patient To Recovery: No Indications 51-year-old male with chronic osteoarthritis right shoulder extensive conservative management. Radiographs demonstrate he is [id number] in the glenohumeral joint with type A wear pattern. Description of Procedure Patient was placed placed under regional block and general anesthetic. The right upper extremity had a towel roll placed on the medial border of the scapula and translated to the side of the bed so it could be manipulated off of the bed as necessary. A foam headrest was placed and protective eyewear was placed. Lower extremities were well-padded. Patient was positioned in a beachchair position approximately 40 degrees. Took a little more than typical time for setting up the case due to his size. Shoulder exam demonstrated 170 degrees of forward flexion and 100 degrees abduction and 40 degrees of external rotation and 70 degrees of internal rotation. He was heavily muscled and obese as well.. The right upper extremity was prepped and draped in sterile fashion. A deltopectoral approach was performed with a longitudinal incision in a deltopectoral interval. The skin was incised sharply and the subcutaneous flaps were elevated. The cephalic vein was dissected out and retracted laterally with the deltoid. The clavipectoral fascia was divided at the lateral margin of the conjoined tendon and extended up to the CA ligament. There were larger and more than typical amount of veins adjacent to the anterior deltoid and adjacent to the biceps tendon and running along the biceps tendon sheath and 3 sisters veins had multiple branches which all had to be carefully tied off or cauterized. Patient was having throughout the case some more than typical amount of bleeding due to these issues. A self-retaining retractor was placed. Biceps findings demonstrated marked biceps tenosynovitis extending all the way up in the bicipital groove with bone spurs and bicipital groove and some biceps tendinopathy proximally. Biceps tendon was tenodesed to the pectoralis with whipstitch type suture x2 into the biceps tendon and passing the sutures into the pectoralis tendon with #2 FiberWire sutures. The chronic tenosynovitis was resected and the proximal biceps resected. The bone spurs were resected. Hemostasis was obtained. Bone wax was used on some of the bone bleeders. The circumflex vessels were tied off with silk ties and divided laterally. The subscapularis muscle fibers were at the level of the circumflex vessels dissection was taken down to the capsule and a Kitner elevator was used to release the inferior fibers of the capsule protecting the axillary nerve inferiorly. A blunt Hohmann retractors were placed between the inferior located axillary nerve and the capsule. This was verified with a tug test. The rotator was opened up and extended down to the glenoid. The subscapularis was taken down with a transtendinous incision leaving a cuff of tissue for repair on the lesser tuberosity. The incision was carried through the subscapularis to the capsule and then subperiosteally along the inferior capsule exposing the inferior humeral osteophytes. These demonstrated very large inferior osteophytes extending from anterior to posterior and all along the posterior humerus. The osteophytes were resected with an artist chisel and rongeur. The humeral head findings demonstrated eburnated bone with no articular cartilage remaining and areas of erosion and cystic changes in the bone some cyst extending into the subchondral bone. After the osteophytes were resected humeral head is retracted posterior to the glenoid with a Fukuda retractor. The glenoid findings demonstrated complete eburnation and no articular cartilage remaining with a degenerative labrum circumferentially and multiple cysts most of them small. The labrum was resected and the biceps tendon resected. A 360 degree release of the subscapularis was performed. Appropriate releases were performed about the glenoid anteriorly and inferiorly leaving the posterior capsule intact. Subperiosteal release with electrocautery on the glenoid anterior and inferior and also utilizing a small Burgess elevator to perform that release. Upon completion of the releases the humeral head was reexposed with retractors and humeral head was sized for a size 52 x 48 Arthrosurface OVO motion humeral head. The central guidepin was placed. The threaded stop for the reamer was drilled into the head. The bone was rockhard so we had to place this on ream and go forward and backward several times in order to seat the screw to the appropriate depth. The head reamer was used. We had to irrigate frequently due to the hardness of the bone. All debris was irrigated out of the joint. The flat head resection reamer was used. The remaining section of bone was removed with a saw. The humerus was then retracted posteriorly again with the Fukuda retractor posterior to the glenoid. The guide for the glenoid component was placed and the guide pin was advanced to the appropriate depth. Glenoid reamers were utilized. The depth gauge verified the depth of the reaming. Due to the amount of articular cartilage loss the snowman type glenoid was utilized and the second reamer was reamed to the appropriate depth. The drill holes for the central posts were placed. Trial component was placed at satisfactory position and depth. Trial was removed and the glenoid reamed area was prepared for cementing with several drill holes placed around the reamed area to accept cement. Also the cysts in the area of the glenoid were curetted out to bone so they would accept cement. After further irrigation the reamed area was packed with epinephrine soaked tampon sponges. The Palacos cement was vacuum mixed. The cement was injected into the glenoid and compressed with a finger compression device. More cement was placed on the back of the glenoid component and it was inserted into the reamed area in appropriate position with the suction device that held onto the component. When the component was appropriate seating position the suction was removed as well as a suction device and direct pressure was placed on of the component and excess cement was cleared and the component was held in position until the cement fully cured. Attention was taken back to the humerus. The humeral head guide was placed onto the humeral head in the appropriate position. The guidepin was readvanced in position. The 12 mm tapered post was inserted to appropriate depth with excellent fixation. Bone was extremely hard. I attempted to drill a hole and pass a #5 FiberWire on a cutting needle however the bone which is too hard to pass the needle through the bone so we had to go a new Gonzalez [employer] Nephew suture anchors. Medial row fixation required a drill and all and tapping for a 4.5 Helicoil anchor of which 2 were placed adjacent to the tenotomy of the subscapularis on the lesser tuberosity area. These were placed with a medial row fixation.. After copious irrigation the Menezes taper of the tapered post was dried and then the humeral component size 52 x 48 was impacted onto the taper post with stable fixation. This was assessed with a Burgess elevator to be stable. Some further bony prominences posterior were resected with a rongeur. This was then reduced to the glenoid and range of motion and stability was assessed. After copious irrigation the subscapularis was repaired with the #2 ultra braid sutures on the anchor and 4 horizontal mattress configurations were placed into the subscapularis for medial row fixation. Lateral row soft tissue repair with #2 FiberWire [id number] sutures and the rotator interval was closed in maximal external rotation with interrupted #2 FiberWire sutures. Then the ultra braid sutures were placed into laterally based 4.5 footprint anchors for further lateral row fixation and compression. An anatomic repair was obtained with stable fixation. The pectoralis was repaired with [id number] #2 FiberWire suture. Sutures were passed through the biceps as well to reinforce the tenodesis. Range of motion was assessed demonstrating 170 degrees of forward flexion 70 degrees of external rotation and 100 degrees of abduction without any tension on subscap repair. Shoulder was stable without any subluxation. The wound was copiously irrigated and 2 Hemovac drains were placed brought out laterally. The deltopectoral interval was repaired with [id number] #1 Vicryl sutures and the subcutaneous tissues were closed into 2-0 Vicryl sutures and skin closed with windy and services were applied and a shoulder immobilizer. The patient tolerated the procedure well. Dexter BOATENG my physician assistant professor of nursing participated as the first line supervisor and he assisted in the procedure with arm positioning soft tissue retraction instrument management suture management and performed the subcutaneous and skin closure dressings and shoulder immobilizer application and will participate in the postop care the patient, Maite BOATENG was my second assistant professor of nursing she also assisted in retraction throughout the procedure and wound closure and postoperative care. There was increased level difficulty in the procedure due to his obesity his large muscular size the density of the bone and the more than typical bleeding. This added a least 2 hours to the time of the procedure more than typical. I attest to the content of the Intraoperative Record and any orders documented therein. Any exceptions are noted below.
--- NOTE | 2022-10-11 19:13 | XRay Report ---
XR shoulder RT min 2V routine CLINICAL HISTORY: Post shoulder surgery TECHNIQUE: 3 views of the right shoulder were obtained. Comparison: Comparison is made to right shoulder MRI 09/28/2022 FINDINGS: Patient is status post shoulder arthroplasty with expected postsurgical changes including soft tissue swelling and subcutaneous emphysema. No periarticular lucency or hardware fracture is seen. IMPRESSION: Expected postoperative appearance status post placement of shoulder arthroplasty. ACT 112: Negative or not required by law. Electronically signed by: Chi Valentino M.D. 10/11/2022 7:12 PM
[2022-10-11] MEDS ORDERED: bisacodyL 10 MG SUPP PR PRN (19:54)
[2022-10-11] MEDS ORDERED: traMADol HCL 50 MG TABLET PO PRN (19:54)
[2022-10-11] MEDS ORDERED: NALOXONE HCL 0.4 MG/1 ML VIAL/CARP IV PRN (19:54)
[2022-10-11] MEDS ORDERED: HYDROmorphone INJ 0.5 MG/0.5 ML SYR IV PRN (19:54)
[2022-10-11] MEDS ORDERED: NITROGLYCERIN SL 0.4 MG/TAB TAB SL PRN (19:54)
[2022-10-11] MEDS ORDERED: MAGNESIUM HYDROXIDE SUSP 30 ML UDC PO PRN (19:54)
[2022-10-11] MEDS ORDERED: LORazepam 1 MG TAB PO PRN (19:54)
--- NOTE | 2022-10-11 20:10 | Anesthesiology Progress Note ---
Date of Service October 11, 2022 Anesthesia Post Procedure Vital Signs Vital Signs: Temp Pulse Pulse Resp BP Pulse Ox O2 Del Method 10/11/22 19:40 78 21 118/81 94 Nasal Cannula 10/11/22 19:30 97.5 F L 75 17 121/87 93 Nasal Cannula 10/11/22 19:20 77 24 127/81 94 Oxymask 10/11/22 19:10 78 22 125/80 95 Oxymask 10/11/22 19:00 80 23 126/93 94 Oxymask 10/11/22 18:53 96.8 F L 78 20 118/75 94 Oxymask 10/11/22 12:39 98.8 F 58 L 20 100/70 99 Room Air O2 Flow Rate 10/11/22 19:40 3 10/11/22 19:30 3 10/11/22 19:20 3 10/11/22 19:10 10 10/11/22 19:00 10 10/11/22 18:53 10 10/11/22 12:39 Pain Intensity Right Shoulder: Pain Intensity: 8 Transfer of Care Handoff Completed per policy Notes Mental Status: alert / awake / arousable and participated in evaluation Patient Amnestic to Procedure: Yes Nausea / Vomiting: adequately controlled Pain: adequately controlled Airway Patency, RR, SpO2: stable & adequate BP & HR: stable & adequate Hydration State: stable & adequate Anesthetic Complications: no major complications apparent and Pt Satisfied with anesthetic care
[2022-10-11] MEDS ORDERED: SENNA 8.6 MG TAB PO SCH (21:00)
[2022-10-11] MEDS ORDERED: QUEtiapine FUMARATE 200 MG TAB PO SCH (21:00)
[2022-10-11] MEDS ORDERED: FUROSEMIDE 20 MG TAB PO SCH (21:00)
[2022-10-11] MEDS: busPIRone 15 MG TAB PO SCH (21:50)
[2022-10-11] MEDS: ASCORBIC ACID 500 MG TAB PO SCH (21:50)
[2022-10-11] MEDS: ZINC SULFATE 220 MG CAPSULE PO SCH (21:50)
[2022-10-11] MEDS: carvediloL 25 MG TAB PO SCH (21:51)
[2022-10-11] MEDS: ACETAMINOPHEN 500 MG TAB PO SCH (21:51)
[2022-10-11] MEDS: DOCUSATE SODIUM 100 MG CAP PO SCH (22:24)
[2022-10-11] MEDS: SODIUM CHLORIDE 0.9% 1000ML 1,000 ML IV SCH (22:24)
[2022-10-11] MEDS: ceFAZolin 2000MG 2,000 MG/15 ML SYR IV SCH (22:51)
[2022-10-12] MEDS: ACETAMINOPHEN 500 MG TAB PO SCH (06:07)
[2022-10-12] MEDS: SODIUM CHLORIDE 0.9% 1000ML 1,000 ML IV SCH (06:45)
--- NOTE | 2022-10-12 07:41 | Hospitalist Consultation ---
Date of Consultation October 12, 2022 Assessment & Plan (1) Primary osteoarthritis, right shoulder: POD# 1 s/p Right Total Shoulder Arthroplasty, Cemented(Right), biceps tenodesis and tenosynovectomy biceps tendon, increased difficulty obesity BMI 40- Meng Tellez MD EBL 325cc Drain output 130cc thus far Pain management/bowel regimen per primary service PT/OT consulted DVT Proph: DAPT continued w/ ASA/Plavix WBC wnl, afebrile Chemistries reviewed -- Na 133 (prior 133 pre-op testing, asymptomatic from such, f/u PCP for TSH testing as outpatient), BUN/Cr 37/2.19 and were 35/2.33 on 10/05 (Cr 2.6 on 10/02) and had been taking extra aspirin at home as well. Increased pain as well reported prior to surgery and rec to AVOID NSAIDS --> discussed w/ primary and in place of tramadol nick given hypoNa and limited control per patient report, decision to use 1gm APA Q8H at d/c and rx for Roxicodone short term for pain relief. Meloxicam prn HELD at discharge Can f/u with PCP about switching his lisinopril to losartan or other (2) CAD (coronary artery disease): Hx NSTEMI, follows with Dr Ashley. stenting to LCx and RCA. on DAPT (extended 1 year per cardiology -- until 10/2023), carvedilol, lisinopril, statin No chest pain reported To f/u cards vs nephrology about switching from PAULO to ARB given cough to have outpt carotid US for bruit on exam plavix to resume for tomorrow (ok to hold per cards, had been >1 yr from initial stent), remains on ASA (patient had been taking extra Whitney for pain prior to surgery) Patient educated to AVOID NSAIDs, especially given his CKD (3) Hypertension: on carvedilol 25mg BID, furosemide 20mg BID, lisinopril 20mg BID --> BPs lower side and patient was given lasix last evening -- held lasix/lisinopril for this morning and await labs to ensure kidney function stable and resumed given improved compared to pre-op BP stable 129/90 in setting of pain/surgery (4) Hyperlipidemia: continue statin (5) CKD (chronic kidney disease): follows with Nephrology, baseline Cr ~2 - pre-op Cr 2.3/2.6 and had rx for meloxicam and taking extra aspirin discussed avoiding NSAIDs and use APAP/prn oxycodone for pain control he has outpt f/u with nephrology (6) GORDY (generalized anxiety disorder): stable continued home meds Plan Thank you for allowing hospitalist service to participate in the care of Mr Shepard. Hospitalist service will sign off at this time. Please call with any questions/concerns Rec'd repeat labs outpatient w/ PCP to monitor Na level and also recs to check thyroid function given prior hyponatremia as well to see if needing any replacement. Supervising Physician Co-Signing Physician Notes The patient was seen by me. The chart was reviewed. Case discussed with KILO Vincent. Agree with assessment and plan. He will be discharged home today. History of Present Illness Reason for Consultation: med management Requesting Physician: Dr Tellez Attending Physician: Meng Tellez MD History of Present Illness 51yo male with PMHx significant for CAD, HTN, HLD, CKD, GORDY presented for RIGHT total shoulder arthroplasty with Dr Tellez on 10/11. Patient seen morning 10/12, doing well. Pain controlled. Some "sleepy fingers" but mobile and sensation intact. 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 Hoping to go home. Labs from this morning reviewed and discussed Cr better than pre-op, resumed lisinopril/lasix. Has been on lisinopril for a while,, dry hacking cough for several months/no fever or sputum production.no hx asthma/Copd. Discussed can f/u PCP/nephrology/cards to switch to losartan as previously mentioned in outpatient provider notes. No fever/chills, chest pain, shortness of breath, abdominal pain or nausea. Eating/drinking no issues, passing gas but waiting to go home to have a bowel movement. Discussed low Na level, no lightheadedness/dizziness reported. No fatigue/constipation symptoms/edema for hypothyroid but can consider repeating labs w/ PCP in follow up. Of note, patient Na low prior -- causes discussed including but not limited to hypothyroidism, elevated BSGs, uncontrolled pain (reported taking several/more aspirin than he should have this past week due to uncontrolled pain in his shoulder), CHF/volume overload, diuretic use, SAIDH/etc. Allergies Allergy/AdvReac Type Severity Reaction Status Date / Time amlodipine AdvReac Intermediate Leg Verified 10/11/22 12:11 swelling clonazepam AdvReac Intermediate "feel like Verified 10/11/22 12:11 a zombie" Home Medications Medication Instructions Recorded Confirmed Type multivitamin 1 tab PO BID 10/21/20 10/11/22 History amino acids (Amino Acid capsule) 1 cap PO UD 06/16/21 10/11/22 History ascorbic acid (vitamin C) 1,000 mg 1 g PO BID 06/16/21 10/11/22 History tablet (Vitamin C) cholecalciferol (vitamin D3) 50 10,000 unit PO DAILY 06/16/21 10/11/22 History mcg (2,000 unit) tablet (Vitamin D3) nitroglycerin 0.4 mg sublingual 0.4 mg sublingual PRN PRN chest 10/01/21 10/11/22 Rx tablet (Nitrostat) pain #1 btl tadalafil 20 mg tablet (Cialis) 20 mg PO .COMPLEX #30 tabs 11/07/21 10/11/22 Rx furosemide 20 mg tablet 20 mg PO BID #180 tabs 11/21/21 10/11/22 Rx carvedilol 25 mg tablet 25 mg PO BID #180 tabs 12/05/21 10/11/22 Rx lisinopril 10 mg tablet 10 mg PO BID #180 tabs 12/08/21 10/11/22 Rx buspirone 15 mg tablet 15 mg PO BID 90 days #180 tabs 03/08/22 10/11/22 Rx lorazepam 1 mg tablet 1 mg PO TID PRN anxiety #60 tabs 08/14/22 10/11/22 Rx atorvastatin 80 mg tablet 80 mg PO QAM #30 tabs 08/15/22 10/11/22 Rx clopidogrel 75 mg tablet 75 mg PO DAILY #30 tabs 08/29/22 10/11/22 Rx zinc sulfate-vitamin C 200 mg-100 1 tab PO BID 09/21/22 10/11/22 History mg tablet aspirin 81 mg tablet 81 mg PO DAILY 10/11/22 10/11/22 History quetiapine 200 mg tablet (Seroquel) 200 mg PO HS 10/11/22 10/11/22 History acetaminophen 500 mg tablet 1,000 mg PO Q8 14 days #84 tabs 10/12/22 Rx (Tylenol Extra Strength) cefadroxil 500 mg capsule 500 mg PO BID #20 caps 10/12/22 Rx oxycodone 5 mg tablet 5 mg PO Q4H PRN pain #18 tabs 10/12/22 Rx Patient History Medical History Anxiety and depression CAD (coronary artery disease) 09/2021 > 1 stent to LCx 10/23/2021 > later staged PCI- 1 stent of RCA Follows with Dr. Ashley CKD (chronic kidney disease) Creatinine baseline 2.0 (follows with nephro) Dry cough Possibly due to Lisinopril vs pet allergy - chronic and stable - improves with warmer weather History of non-ST elevation myocardial infarction (NSTEMI) 09/2021 Hyperlipidemia Hypertension Post traumatic stress disorder Surgical History History of cardiac cath 09/2021 > 1 stent 10/2021 > 1 stent S/P hernia surgery umbilical S/P tendon repair Right quadriceps tendon repair (09/09/20): Grade view 1 with glidescope #4, ETT 8.0 + PNB at [facility]. No issues noted per post-op anesthesia progress note. Family History Father Myocardial infarction COPD (chronic obstructive pulmonary disease) Hypertension Family history of diabetes mellitus Grandfather Lung cancer Mother COPD (chronic obstructive pulmonary disease) Hypertension Grandfather (Paternal) Myocardial infarction Family history of diabetes mellitus Other No family history of adverse response to anesthesia Denies family history of Ovarian cancer Prostate cancer Breast cancer Colorectal cancer Social History Smoking Status: Never smoker Second Hand Exposure: Yes (as a child); Do You Dip or Chew Tobacco: No; Tobacco Cessation Education Requested by Patient: No Hx Alcohol Use: No Hx Substance Use: No Preferred Language: Djiboutian Communication Ability: Effective Visual Impairment: No Limitations Hearing Ability: Normal [place] Program Coordinator Required: No Beliefs That Will Affect Care: None marital status: Current Living Situation: Spouse and Family current occupational status: employed 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 Other Information That Helps Us Care for You: No Feels Safe at Home: Yes Safety Concerns: Feels Safe At This Time Childhood Exposure to Second-Hand Smoke: Yes Dental Care, Regularly: Yes Physical Activity Frequency: 3-4 Times per Week Seatbelt Use: never Sunscreen Use: No Assistive Devices: Glasses Review of Systems Review of Systems: All systems reviewed & are unremarkable except as noted in HPI & below Physical Exam Physical Exam: General: WD/WN obese male sitting up in bed listening to music, NAD HEENT: + bruit, head normocephalic, atraumatic, mmm, trachea midline Resp: CTA, slight diminished in the bases, good effort, no w/c, on room air CV: RRR, no significant m/r/g, no pitting edema/calf tenderness GI: +BS, obese, slight distension, nontender : no bauer MSK/Neuro: sling to R shoulder, dressing c/d/i, hemovac w/ bloody output, sensation intact, pulses palpable, slight decreased rat trapper strength on the right compared to the left. Psych: AOx3, cooperative and pleasant Results & Data Results & Data ([facility]) Vital Signs (Past 12 Hours) Vital Signs Temp Pulse Pulse Resp BP Pulse Ox O2 Del Method 10/12/22 02:24 36.8 C 99 H 16 108/76 96 Room Air 10/11/22 22:13 36.5 C 75 18 145/97 H 96 Room Air 10/11/22 21:17 36.9 C 81 18 134/90 96 Room Air 10/11/22 20:14 36.7 C 73 18 120/81 93 Room Air 10/11/22 19:40 78 21 118/81 94 Nasal Cannula O2 Flow Rate 10/12/22 02:24 10/11/22 22:13 10/11/22 21:17 10/11/22 20:14 10/11/22 19:40 3 Laboratory Results 10/12/22 10/12/22 10/11/22 Range/Units 08:38 08:38 Unknown WBC 8.86 (4.8-10.8) K/ul RBC 5.08 (4.70-6.10) M/uL Hgb 16.4 (14.0-18.0) g/dl Hct 46.6 (42.0-52.0) % MCV 91.7 (80.0-100.0) fL MCH 32.3 (25.0-34.0) pg MCHC 35.2 (32.0-36.0) g/dL RDW Std Deviation 39.9 (36.4-46.3) fL RDW Coeff of Melonie 11.9 (11.5-14.5) % Plt Count 126 L (130-400) K/uL MPV 10.9 (9.4-12.4) fL Immature Gran % (Auto) 0.5 % Neut % (Auto) 83.8 % Lymph % (Auto) 8.7 % Bremer % (Auto) 6.8 % Eos % (Auto) 0.1 % Baso % (Auto) 0.1 % Neut # (Auto) 7.43 H (1.40-6.50) K/uL Lymph # (Auto) 0.77 L (1.2-3.4) K/uL Bremer # (Auto) 0.60 H (0.11-0.59) K/uL Eos # (Auto) 0.01 (0-0.50) K/uL Baso # (Auto) 0.01 (0-0.2) K/uL Immature Gran # (Auto) 0.04 (0.01-0.20) K/uL Sodium 133 L (136-145) mmol/L Potassium 4.4 (3.5-5.1) mmol/L Chloride 102 (98-107) mmol/L Carbon Dioxide 25 (21-32) mmol/L Anion Gap 6 (3-11) BUN 37 H (6-23) mg/dl Creatinine 2.19 H (0.6-1.4) mg/dl Est Cr Clr Drug Dosing 57.8 ml/min Est GFR ( Amer) 39.5 ml/min Est GFR (Non-Af Amer) 34.1 ml/min BUN/Creatinine Ratio 16.9 (10-20) Glucose 117 H (70-99(Fasting)) mg/dl Calcium 9.1 (8.5-10.1) mg/dl SARS-CoV-2, RNA, NAAT NEGATIVE (NEGATIVE) Diagnostic Findings Shoulder X-Ray 10/11/22 17:15 XR shoulder RT min 2V routine CLINICAL HISTORY: Post shoulder surgery TECHNIQUE: 3 views of the right shoulder were obtained. Comparison: Comparison is made to right shoulder MRI 09/28/2022 FINDINGS: Patient is status post shoulder arthroplasty with expected postsurgical changes including soft tissue swelling and subcutaneous emphysema. No periarticular lucency or hardware fracture is seen. IMPRESSION: Expected postoperative appearance status post placement of shoulder arthroplasty. ACT 112: Negative or not required by law. Electronically signed by: Chi Valentino M.D. 10/11/2022 7:12 PM PG Care Time/CCT Total # of Minutes Spent Total Time Spent with Patient: Total time spent is greater than 50% in coordination of care (as documented) at patient's floor/unit and/or counseling patient: Coding Level of Care Code 71033 IN/OBS CONSULT LVL 3,45M Diagnoses Primary osteoarthritis, right shoulder M19.011 CAD (coronary artery disease) I25.10 Hypertension I10 Hyperlipidemia E78.2 Hyperlipidemia type: mixed hyperlipidemia CKD (chronic kidney disease) N18.9 GORDY (generalized anxiety disorder) F41.1 (4) Hyperlipidemia Hyperlipidemia type: mixed hyperlipidemia Qualified Code(s): E78.2 - Mixed hyperlipidemia
[2022-10-12] MEDS: ceFAZolin 2000MG 2,000 MG/15 ML SYR IV SCH (08:13)
[2022-10-12] MEDS: busPIRone 15 MG TAB PO SCH (08:19)
[2022-10-12] MEDS: ASCORBIC ACID 500 MG TAB PO SCH (08:19)
[2022-10-12] MEDS: carvediloL 25 MG TAB PO SCH (08:20)
[2022-10-12] MEDS: ZINC SULFATE 220 MG CAPSULE PO SCH (08:20)
[2022-10-12] MEDS: DOCUSATE SODIUM 100 MG CAP PO SCH (08:23)
[2022-10-12] MEDS ORDERED: ATORVASTATIN 40 MG TAB PO SCH (09:00)
[2022-10-12] MEDS ORDERED: MULTIVITAMIN TAB PO SCH (09:00)
[2022-10-12] MEDS ORDERED: CHOLECALCIFEROL 5,000 UNITS 125 MCG TAB PO SCH (09:00)
[2022-10-12] MEDS ORDERED: lisinopril 10 MG TAB PO SCH (09:00)
[2022-10-12] MEDS ORDERED: ASPIRIN 81 MG ECTAB PO SCH (09:00)
--- NOTE | 2022-10-12 09:34 | Orthopedic Progress Note ---
Date of Service October 12, 2022 Assessment & Plan (1) Primary osteoarthritis, right shoulder: Plan: Postop day 1 PT/OT protocols. Nonweightbearing right upper extremity. DVT prophylaxis. Patient resumed on aspirin and will resume his Plavix tomorrow Pain management as written. Lab values discussed with Colleen Gomez PA-C. Creatinine a little better than baseline of recent. Hyponatremia - planning for outpt labs in the future. DC planning patient is planning for outpatient PT upon discharge. Admission and Anticipated Discharge Date Admission Date: October 11, 2022 Subjective Postop day 1 Patient currently ambulating in his room independently. He is just finished his physical therapy session. No complaints this morning. Pain is controlled. He is hoping to go home today. Physical Exam Physical Exam: Dressings are clean, dry, and intact. Sling is in place. He has good active range of motion of his fingers and wrist at this time with good strength. He does have some residual decreased sensation in the fingers at this time from his nerve block. Capillary refills less than 2 seconds Results & Data ([facility]) Vital Signs (Past 12 Hours) Vital Signs Temp Pulse Resp BP Pulse Ox O2 Del Method 10/12/22 07:46 36.8 C 85 16 129/90 94 Room Air 10/12/22 02:24 36.8 C 99 H 16 108/76 96 Room Air 10/11/22 22:13 36.5 C 75 18 145/97 H 96 Room Air Laboratory Results Laboratory Results WBC 8.86 K/ul (4.8-10.8) 10/12/22 08:38 RBC 5.08 M/uL (4.70-6.10) 10/12/22 08:38 Hgb 16.4 g/dl (14.0-18.0) 10/12/22 08:38 Hct 46.6 % (42.0-52.0) 10/12/22 08:38 MCV 91.7 fL (80.0-100.0) 10/12/22 08:38 MCH 32.3 pg (25.0-34.0) 10/12/22 08:38 MCHC 35.2 g/dL (32.0-36.0) 10/12/22 08:38 RDW Std Deviation 39.9 fL (36.4-46.3) 10/12/22 08:38 RDW Coeff of Melonie 11.9 % (11.5-14.5) 10/12/22 08:38 Plt Count 126 K/uL (130-400) L 10/12/22 08:38 MPV 10.9 fL (9.4-12.4) 10/12/22 08:38 Immature Gran % (Auto) 0.5 % 10/12/22 08:38 Neut % (Auto) 83.8 % 10/12/22 08:38 Lymph % (Auto) 8.7 % 10/12/22 08:38 [place] % (Auto) 6.8 % 10/12/22 08:38 Eos % (Auto) 0.1 % 10/12/22 08:38 Baso % (Auto) 0.1 % 10/12/22 08:38 Neut # (Auto) 7.43 K/uL (1.40-6.50) H 10/12/22 08:38 Lymph # (Auto) 0.77 K/uL (1.2-3.4) L 10/12/22 08:38 [place] # (Auto) 0.60 K/uL (0.11-0.59) H 10/12/22 08:38 Eos # (Auto) 0.01 K/uL (0-0.50) 10/12/22 08:38 Baso # (Auto) 0.01 K/uL (0-0.2) 10/12/22 08:38 Immature Gran # (Auto) 0.04 K/uL (0.01-0.20) 10/12/22 08:38 Sodium 133 mmol/L (136-145) L 10/12/22 08:38 Potassium 4.4 mmol/L (3.5-5.1) 10/12/22 08:38 Chloride 102 mmol/L (98-107) 10/12/22 08:38 Carbon Dioxide 25 mmol/L (21-32) 10/12/22 08:38 Anion Gap 6 (3-11) 10/12/22 08:38 BUN 37 mg/dl (6-23) H 10/12/22 08:38 Creatinine 2.19 mg/dl (0.6-1.4) H 10/12/22 08:38 Est Cr Clr Drug Dosing 57.8 ml/min 10/12/22 08:38 Est GFR ( Amer) 39.5 ml/min 10/12/22 08:38 Est GFR (Non-Af Amer) 34.1 ml/min 10/12/22 08:38 BUN/Creatinine Ratio 16.9 (10-20) 10/12/22 08:38 Glucose 117 mg/dl (70-99(Fasting)) H 10/12/22 08:38 Calcium 9.1 mg/dl (8.5-10.1) 10/12/22 08:38 SARS-CoV-2, RNA, NAAT NEGATIVE (NEGATIVE) 10/11/22 Unknown Impressions Shoulder X-Ray 10/11/22 17:15 XR shoulder RT min 2V routine CLINICAL HISTORY: Post shoulder surgery TECHNIQUE: 3 views of the right shoulder were obtained. Comparison: Comparison is made to right shoulder MRI 09/28/2022 FINDINGS: Patient is status post shoulder arthroplasty with expected postsurgical changes including soft tissue swelling and subcutaneous emphysema. No periarticular lucency or hardware fracture is seen. IMPRESSION: Expected postoperative appearance status post placement of shoulder arthroplasty. ACT 112: Negative or not required by law. Electronically signed by: Chi Valentino M.D. 10/11/2022 7:12 PM
[2022-10-12 09:48] LABS: Basophils # (auto) 0.01 K/uL (0-0.2); Basophils % (auto) 0.1 %; Eosinophils # (auto) 0.01 K/uL (0-0.50); Eosinophils % (auto) 0.1 %; Hematocrit (blood only) 46.6 % (42.0-52.0); Hemoglobin 16.4 g/dl (14.0-18.0); Immature Granulocytes # (auto) 0.04 K/uL (0.01-0.20); Immature Granulocytes % (auto) 0.5 %; Lymphocytes # (auto) 0.77 K/uL (1.2-3.4); Lymphocytes % (auto) 8.7 %; Mean Corpuscular Hemoglobin 32.3 pg (25.0-34.0); Mean Corpuscular Hgb Conc 35.2 g/dL (32.0-36.0); Mean Corpuscular Volume 91.7 fL (80.0-100.0); Mean Platelet Volume 10.9 fL (9.4-12.4); Monocytes % (auto) 6.8 %; Neutrophils # (auto) 7.43 K/uL (1.40-6.50); Neutrophils % (auto) 83.8 %; Platelet Count 126 K/uL (130-400); RDW Coefficient of Variation 11.9 % (11.5-14.5); RDW Standard Deviation 39.9 fL (36.4-46.3); Red Blood Count 5.08 M/uL (4.70-6.10); White Blood Count 8.86 K/ul (4.8-10.8)
[2022-10-12 10:10] LABS: BUN Creatinine Ratio 16.9 (10-20); Calcium 9.1 mg/dl (8.5-10.1); Creatinine Clr Calc Pharmacy 57.8 ml/min; Est GFR (African American) 39.5 ml/min; Est GFR (Non-African American) 34.1 ml/min; Potassium 4.4 mmol/L (3.5-5.1)
--- NOTE | 2022-10-12 12:58 | Discharge Summary ---
Date of Service October 12, 2022 Admission HPI Per Admitting Provider 51-year-old male with past medical history significant for hypertension, CKD, CAD status post stent placement, history of MO, longstanding right shoulder pain. Patient's shoulder pain is interfering with his daily activities. He has failed conservative measures. He would like to proceed with surgical intervention. Patient denies headaches, sweats, fevers, chills, double vision, blurred vision, cough, sore throat, dysphagia, chest pain, sob, wheezing, n/v/d/c, numbness, tingling, fatigue, urinary symptoms, mood disorders. ROS positive for right shoulder pain and stiffness. Admission Exam Per Admitting Provider Physical Exam Constitutional: well developed and well nourished; no acute distress Eyes: PERRL, conjunctivae normal, anicteric sclerae ENMT: external ear and nose normal, oropharynx normal Neck: trachea midline, no thyromegaly Respiratory: normal respiratory effort, lungs clear to auscultation Cardiovascular: RRR, no murmur, no edema Musculoskeletal: Right shoulder: Tenderness diffusely in anterior glenoid. Crepitation with range of motion. Painful range of motion. Abduction to 120 degrees, external rotation to 70 degrees, forward flexion of 120 degrees. He has pain with strength testing. [id number] crepitation with resisted abduction. Skin: no rashes, warm and dry Neurologic: patellar DTR's 2+ bilat, sensation intact Psychiatric: A+Ox3, euthymic affect Principal Diagnosis Right shoulder Osteoarthritis Discharge Data Allergies Allergy/AdvReac Type Severity Reaction Status Date / Time amlodipine AdvReac Intermediate Leg Verified 10/11/22 12:11 swelling clonazepam AdvReac Intermediate "feel like Verified 10/11/22 12:11 a zombie" Consultations 10/08/22 16:11 Consult Hospitalist Routine Procedures Performed Operation Date: 10/11/22 14:00 Actual Procedures p Right Total Shoulder Arthroplasty, Cemented(Right) - Meng Tellez MD Ordered Studies 10/11/22 05:00 US - OR guided needle placemen Routine Hospital Course (1) Primary osteoarthritis, right shoulder: Patient:VESNA LACEY Admit Date:10/11/22 MR#:[id number] Att Phy:Meng Tellez M.D. Acct ID:[id number] [facility] Phy:Chris Mckeon, III, [employer] MARKETING DIRECTOR Date:1970 Fam Phy: Age:51 Location:3W Sex:M Room/Bed:[facility] cc: ~ *NOTICE TO RECEIVING [employer]/AGENCY This information is strictly Confidential and protected under [place] law. [place] law prohibits you from making any further disclosure of this information unless further disclosure is expressly permitted by the written consent of the person to whom it pertains or is authorized by law. A general authorization for the release of medical or other information is not sufficient for this purpose. Hospital accepts no responsibility if the information is made available to any other person, INCLUDING THE PATIENT. Date of Service October 12, 2022 Assessment & Plan (1) Primary osteoarthritis, right shoulder: Plan: Postop day 1 PT/OT protocols. Nonweightbearing right upper extremity. DVT prophylaxis. Patient resumed on aspirin and will resume his Plavix tomorrow Pain management as written. Lab values discussed with Colleen Gomez PA-C. Creatinine a little better than baseline of recent. Hyponatremia - planning for outpt labs in the future. DC planning patient is planning for outpatient PT upon discharge. Admission and Anticipated Discharge Date Admission Date: October 11, 2022 Subjective Postop day 1 Patient currently ambulating in his room independently. He is just finished his physical therapy session. No complaints this morning. Pain is controlled. He is hoping to go home today. Physical Exam Physical Exam: Dressings are clean, dry, and intact. Sling is in place. He has good active range of motion of his fingers and wrist at this time with good strength. He does have some residual decreased sensation in the fingers at this time from his nerve block. Capillary refills less than 2 seconds Results & Data ([facility]) Vital Signs (Past 12 Hours) Vital Signs Temp Pulse Resp BP Pulse Ox O2 Del Method 10/12/22 07:46 36.8 C 85 16 129/90 94 Room Air 10/12/22 02:24 36.8 C 99 H 16 108/76 96 Room Air 10/11/22 22:13 36.5 C 75 18 145/97 H 96 Room Air Laboratory Results Laboratory Results WBC 8.86 K/ul (4.8-10.8) 10/12/22 08:38 RBC 5.08 M/uL (4.70-6.10) 10/12/22 08:38 Hgb 16.4 g/dl (14.0-18.0) 10/12/22 08:38 Hct 46.6 % (42.0-52.0) 10/12/22 08:38 MCV 91.7 fL (80.0-100.0) 10/12/22 08:38 MCH 32.3 pg (25.0-34.0) 10/12/22 08:38 MCHC 35.2 g/dL (32.0-36.0) 10/12/22 08:38 RDW Std Deviation 39.9 fL (36.4-46.3) 10/12/22 08:38 RDW Coeff of Melonie 11.9 % (11.5-14.5) 10/12/22 08:38 Plt Count 126 K/uL (130-400) L 10/12/22 08:38 MPV 10.9 fL (9.4-12.4) 10/12/22 08:38 Immature Gran % (Auto) 0.5 % 10/12/22 08:38 Neut % (Auto) 83.8 % 10/12/22 08:38 Lymph % (Auto) 8.7 % 10/12/22 08:38 [place] % (Auto) 6.8 % 10/12/22 08:38 Eos % (Auto) 0.1 % 10/12/22 08:38 Baso % (Auto) 0.1 % 10/12/22 08:38 Neut # (Auto) 7.43 K/uL (1.40-6.50) H 10/12/22 08:38 Lymph # (Auto) 0.77 K/uL (1.2-3.4) L 10/12/22 08:38 [place] # (Auto) 0.60 K/uL (0.11-0.59) H 10/12/22 08:38 Eos # (Auto) 0.01 K/uL (0-0.50) 10/12/22 08:38 Baso # (Auto) 0.01 K/uL (0-0.2) 10/12/22 08:38 Immature Gran # (Auto) 0.04 K/uL (0.01-0.20) 10/12/22 08:38 Sodium 133 mmol/L (136-145) L 10/12/22 08:38 Potassium 4.4 mmol/L (3.5-5.1) 10/12/22 08:38 Chloride 102 mmol/L (98-107) 10/12/22 08:38 Carbon Dioxide 25 mmol/L (21-32) 10/12/22 08:38 Anion Gap 6 (3-11) 10/12/22 08:38 BUN 37 mg/dl (6-23) H 10/12/22 08:38 Creatinine 2.19 mg/dl (0.6-1.4) H 10/12/22 08:38 Est Cr Clr Drug Dosing 57.8 ml/min 10/12/22 08:38 Est GFR ( Amer) 39.5 ml/min 10/12/22 08:38 Est GFR (Non-Af Amer) 34.1 ml/min 10/12/22 08:38 BUN/Creatinine Ratio 16.9 (10-20) 10/12/22 08:38 Glucose 117 mg/dl (70-99(Fasting)) H 10/12/22 08:38 Calcium 9.1 mg/dl (8.5-10.1) 10/12/22 08:38 SARS-CoV-2, RNA, NAAT NEGATIVE (NEGATIVE) 10/11/22 Unknown Impressions Shoulder X-Ray 10/11/22 17:15 XR shoulder RT min 2V routine CLINICAL HISTORY: Post shoulder surgery TECHNIQUE: 3 views of the right shoulder were obtained. Comparison: Comparison is made to right shoulder MRI 09/28/2022 FINDINGS: Patient is status post shoulder arthroplasty with expected postsurgical changes including soft tissue swelling and subcutaneous emphysema. No periarticular lucency or hardware fracture is seen. IMPRESSION: Expected postoperative appearance status post placement of shoulder arthroplasty. ACT 112: Negative or not required by law. Electronically signed by: Chi Valentino M.D. 10/11/2022 7:12 PM Signed By: <Electronically signed by Dexter Ceron PA-C> 10/12/22 1042 Total Time Total Time Spent Total Time Spent (In Minutes): 5 Discharge Plan Discharge Items Patient Disposition: Home - Self-Care Reason For Visit: POST SURGICAL CARE Discharge Diagnosis: Osteoarthritis right shoulder Activity: Per Instructions section Weightbearing: Right non-weightbearing Non-emergency contact: Surgeon Call non-emergency contact if: you have any medication questions, your pain is not controlled, your temperature is above 101.5, your wound has increased redness and your wound has increased drainage Follow-up/Referrals: Chris Mckeon III, CRNP [Primary Care Provider] - Meng Tellez MD [Surgeon] - (Follow-up with Dr. Tellez or his PA in 2 weeks from the day of surgery for your first postoperative visit.) Diet: Regular Addtl Attending Provider Instructions: ACTIVITY RECOMMENDATIONS: SELF CARE INSTRUCTIONS AFTER TOTAL SHOULDER ARTHROPLASTY A. You may do daily exercises as taught in physical therapy while in hospital. No lifting with the operative arm. Please schedule your outpatient physical therapy appointment to begin within 2-3 days after leaving the hospital. Specific restrictions will be written on your physical therapy prescription that is provided to you. B. You are to wear your sling/immobilizer at all times EXCEPT when performing your daily exercises, participating in physical therapy and for hygiene p urposes. C. You may perform dry, daily dressing changes. Please keep your incision covered. You may shower 48 hours after surgery. Do not apply soap or any ointment/lotions directly over incision. Do not soak incision in bath tub/swimming pool. D. You may use ice as needed to operative shoulder. SPECIAL CARE INSTRUCTIONS: MEDICATION INSTRUCTIONS: *It is recommended you take Aspirin 325mg daily for four weeks post-op. VERY IMPORTANT TO READ AND REVIEW A. There are a few signs you need to watch for after you are home. Call [facility] at [phone] if you experience any of the followin. Increased severe shoulder pain. Some pain is expected especially when you exercise. 2. Increased swelling in you shoulder or arm; pain or swelling in either upper extremity. 3. Any fluid drainage from the incision. 4. Shortness of breath or chest pain. B. Please call [facility] at [phone] if you have any questions or concerns about your operation or recovery. C. Call your physician if: 1. Temperature is greater than 101 degrees (F). 2. Pain is not relieved by prescribed pain medications. 3. Increase drainage or redness from incision. 4. Unanswered questions or concerns. FOLLOW UP VISIT: Please call [facility] at [phone] to schedule a follow up appointment with Dr. Tellez or his PA in 12-14 days from your surgery date. Stand-Alone Forms: [facility], Smoking Cessation Medications and DC Order Prescriptions: New acetaminophen [Tylenol Extra Strength] 500 mg Tablet 1,000 mg PO Q8 14 Days Qty: 84 0RF cefadroxil 500 mg capsule 500 mg PO BID Qty: 20 0RF oxycodone 5 mg tablet 5 mg PO Q4H MDD 6 tabs PRN (Reason: pain) Qty: 18 0RF Continued furosemide 20 mg tablet 20 mg PO BID Qty: 180 3RF carvedilol 25 mg tablet 25 mg PO BID Qty: 180 3RF Rx Instructions: must administer with a meal/food buspirone 15 mg tablet 15 mg PO BID 90 Days Qty: 180 1RF atorvastatin 80 mg tablet 80 mg PO QAM Qty: 30 11RF clopidogrel 75 mg tablet 75 mg PO DAILY Qty: 30 6RF tadalafil [Cialis] 20 mg tablet 20 mg PO .COMPLEX Qty: 30 3RF Rx Instructions: 20 mg PO 30 min prior to activity; lorazepam 1 mg tablet 1 mg PO TID PRN (Reason: anxiety) Qty: 60 2RF lisinopril 10 mg tablet 10 mg PO BID Qty: 180 3RF multivitamin Tablet 1 tab PO BID Amino Acid Capsule 1 cap PO UD Rx Instructions: 17245 mg every day cholecalciferol (vitamin D3) [Vitamin D3] 50 mcg (2,000 unit) tablet 10,000 unit PO DAILY ascorbic acid (vitamin C) [Vitamin C] 1,000 mg tablet 1 g PO BID zinc sulfate-vitamin C 200-100 mg Tablet 1 tab PO BID quetiapine [Seroquel] 200 mg tablet 200 mg PO HS aspirin 81 mg Tablet 81 mg PO DAILY nitroglycerin [Nitrostat] 0.4 mg Tablet, Sublingual 0.4 mg sublingual PRN PRN (Reason: chest pain) Qty: 1 2RF Discontinued omega-3 fatty acids [Fish Oil Concentrate] 1,000 mg capsule 1,000 mg PO BID meloxicam 15 mg Tablet 15 mg PO DAILY PRN (Reason: Pain) Discharge Orders: Discharge Order (Routine); Ordered 10/12/22 Ordered By: Dexter Ceron Admission Data Admit Date/Time: 10/11/22 17:15 Attending Provider: Meng Tellez Admit Provider: Meng Tellez Primary Care Provider: Chris Mckeon III Other Providers: Bertin Turner Robert R. Other Interventions: Discharge Summary Assessment (RN) Last Done: 10/12/22 10:52
[2022-10-13] MEDS ORDERED: CLOPIDOGREL BISULFATE 75 MG TAB PO SCH (09:00)
== END 2022-10-12 12:24 | disposition home or self-care (01) | DRG 483 ==
LOC: ASU 11:52 → 3W 17:15 → INTOOBSV 17:15